=== PATIENT | female | born 1950 | race Asian ===

== ENCOUNTER 2016-08-07 10:50 | Inpatient (IN) | payer MEDICAID, OTHER ==
[~2016-08-07] VITALS: Ht 160 cm; Wt 57.6 kg
--- NOTE | 2016-08-07 11:37 | Diagnostic Imaging Report ---
Indication: Altered metal status, right-sided weakness Technique: Continuous helical CT scanning of the head was performed without intravenous contrast material. Axial and coronal 5 mm sections were generated. Radiation dose was minimized using automated exposure control Dose: Total Dose Length Product - DLP [address] Dose Index - CTDIvol(s) 70.38 mGy. Comparison: None Findings: The ventricular system is normal in size and configuration. The extra-axial CSF spaces are slightly prominent. There is no shift of midline structures. No abnormal extra-axial fluid collections are noted. There is no evidence of intracerebral bleeding. No other abnormal high or low density areas are noted within the brain. Visualized orbits and sinuses are unremarkable. Intact calvarium Impression: Normal CT scan of the head without contrast material. Findings discussed by phone with Dr. Reilly at the time of interpretation The CT scanner at [facility] is accredited by the [employer] and the scans are performed using protocols designed to limit radiation exposure to as low as reasonably achievable to attain images of sufficient resolution adequate for diagnostic evaluation.
[2016-08-07 11:45] VITALS: BP 164/74
[2016-08-07 11:57] LABS: BASOPHILS % (AUTO) 0.7 % (0.0-2.0); EOSINOPHILS % (AUTO) 0.8 % (0.0-3.0); LYMPHOCYTES % (AUTO) 15.2 % (20.0-45.0); MEAN CORPUSCULAR HEMOGLOBIN 28.8 PG (27.0-31.0); MEAN CORPUSCULAR HGB CONC 32.6 G/DL (32.0-36.0); MEAN CORPUSCULAR VOLUME 88 FL (80-99); MEAN PLATELET VOLUME 5.9 FL (6.5-10.1); MONOCYTES % (AUTO) 3.5 % (1.0-10.0); NEUTROPHILS % (AUTO) 79.9 % (45.0-75.0); PLATELET COUNT 386 K/UL (150-450); RED BLOOD COUNT 4.73 M/UL (4.20-5.40); RED CELL DISTRIBUTION WIDTH 12.1 % (11.6-14.8); WHITE BLOOD COUNT 7.8 K/UL (4.8-10.8)
[2016-08-07 12:10] LABS: PROTHROMBIN TIME 9.8 SEC (9.30-11.50)
[2016-08-07 12:12] LABS: ALANINE AMINOTRANSFERASE 6 U/L (3-33); ALBUMIN/GLOBULIN RATIO 1.4 (1.0-2.7); ANION GAP 14 (5-15); ASPARTATE AMINO TRANSFERASE 14 U/L (5-40); CALCIUM 9.4 mg/dL (8.6-10.2); CARBON DIOXIDE 28 mEQ/L (20-30); CHLORIDE 96 mEQ/L (98-107); CHOLESTEROL 198 mg/dL (< 200); CHOLESTEROL/HDL RATIO 3.2 (3.3-4.4); CREATININE 0.8 mg/dL (0.5-0.9); GLOMERULAR FILTRATION RATE > 60 mL/min (>60); HEMOLYSIS 14; LDL CHOLESTEROL (CALC.) 124 mg/dL (60-99); POTASSIUM 4.1 mEQ/L (3.4-4.9); SODIUM 138 mEQ/L (135-145); TOTAL PROTEIN 7.2 g/dL (6.6-8.7); TROPONIN I < 0.30 ng/mL (<=0.30)
[2016-08-07 12:45] VITALS: BP 155/79
[2016-08-07] MEDS ORDERED: METFORMIN HCL500 M1 ORAL (13:02)
[2016-08-07] MEDS ORDERED: BENAZEPRIL HCL10 MG ORAL (13:02)
[2016-08-07] MEDS ORDERED: METOPROLOL TART25 MG ORAL (13:02)
[2016-08-07 13:16] LABS: APPEARANCE,URINE CLEAR; KETONES,URINE NEGATIVE (NEGATIVE); NITRITE,URINE NEGATIVE (NEGATIVE); PH,URINE 8 (4.5-8.0); PROTEIN,URINE NEGATIVE (NEGATIVE); UROBILINOGEN,URINE NORMAL MG/DL (0.0-1.0)
[2016-08-07 13:30] LABS: BACTERIA,URINE FEW /HPF; LEUKOCYTE ESTERASE ,URINE 1+ (NEGATIVE); RBC,URINE 0-2 /HPF (0 - 2); SQUAMOUS EPITHELIAL CELL,UR FEW /LPF (NONE/OCC)
[2016-08-07 14:45] VITALS: BP 152/81
--- NOTE | 2016-08-07 15:46 | Diagnostic Imaging Report ---
Indication: CVA Technique: sagittal T1 fast spin echo, axial T1 and T2 FLAIR PROPELLER, axial T2 FS PROPELLER, T2* GRE, axial diffusion weighted images, post contrast axial and coronal T1 FLAIR PROPELLER images. ADC and exponential ADC maps generated Comparison: None Findings: . A cluster of foci of restricted diffusion is seen within the left pineda radiata and left basal ganglia region. There is a separate focus of restricted diffusion in the left temporoparietal junction. There is no associated susceptibility artifact to suggest acute hemorrhage.. There is minimal abnormal increased T2 signal on the T2 and T3 FLAIR images in the corresponding areas.. No mass effect nor midline shift. There a small focus of contrast enhancement just to the left of midline this above the sella which measures approximately 6 mm diameter, seen on the coronal and axial postcontrast images no other foci of unusual contrast enhancement.. The blood vessels in the left posterior frontal, parietal, and temporal lobes are considerably more prominent than those on the right on postcontrast images. In addition, abnormal high signal is seen within the left convexity vessels of the MCA distribution on the T2 FLAIR images. On the T2 images, there is less visibility of the M1 segment flow void and there is of the contralateral side. There is age-related enlargement of the ventricles and extra-axial CSF spaces. Visualized orbits and sinuses are unremarkable. . Impression: Positive for multifocal acute lacunar infarcts of the left carotid radiata, basal ganglia, and a single separate focus in the left temporoparietal junction. Multiplicity suggests embolic phenomena as etiology. No associated hemorrhage Unusual finding of high T2 FLAIR signal within the left middle cerebral artery distribution branch vessels, increased contrast enhancement of these arteries, and poor visualization of the M1 flow void on the T2-weighted images. Findings are suggestive of significant stenosis of the left proximal middle cerebral artery. Consider CT angiogram or MR angiogram for better characterization Suspect 6 mm meningioma of the top of the clinoid on the left Mild age-related volume loss Findings discussed with phone with Dr. Reilly at the time the exam was performed
--- NOTE | 2016-08-07 16:22 | Emergency Room Report ---
History of Present Illness General Chief Complaint: General Complaint Source: Patient, EMS Present Illness HPI Patient states that around 4 AM she woke up and noticed that she had slurred speech. She states that she also had weakness and numbness in her right arm. She states that the weakness has improved. She still has a tingling/numbness sensation in her right arm. She continues to have slurred speech but states that it is improved. She denies recent illness. She denies headache. She denies recent trauma. She denies neck pain. She denies chest pain or shortness of breath. She has no other complaints. Allergies: Coded Allergies: No Known Allergies (Unverified , 08/07/16) Patient History Past Medical History: see triage record, DM, HTN Social History: Denies: alcohol use, drug use, smoking Reviewed Nursing Documentation: PMH: Agreed, PSxH: Agreed Nursing Documentation-PMH Past Medical History: No History, Except For Hx Hypertension: Yes Hx Diabetes: Yes Review of Systems All Other Systems: negative except mentioned in HPI Physical Exam Vital Signs Date Time Temp Pulse Resp B/P Pulse Ox O2 Delivery O2 Flow Rate FiO2 08/07/16 10:49 98.1 75 20 171/79 100 Room Air Sp02 EP Interpretation: reviewed, normal General Appearance: no apparent distress, alert, GCS 15, non-toxic Head: normocephalic, atraumatic Eyes: bilateral eye PERRL, bilateral eye normal inspection ENT: hearing grossly normal, normal pharynx, no angioedema Neck: full range of motion, supple/symm/no masses Respiratory: chest non-tender, lungs clear, normal breath sounds, speaking full sentences Cardiovascular #1: regular rate, rhythm, no edema, systolic murmur Gastrointestinal: normal bowel sounds, non tender, soft, non-distended, no guarding, no rebound Rectal: deferred Musculoskeletal: back normal, gait/station normal, normal range of motion, non- tender Neurologic: alert, oriented x3, responsive, motor strength/tone normal, other - Slurred speech. Word finding and slow speech. Psychiatric: judgement/insight normal, memory normal, mood/affect normal, no suicidal/homicidal ideation Skin: normal color, no rash, warm/dry, well hydrated Medical Decision Making Diagnostic Impression: Primary Impression: CVA (cerebral vascular accident) ER Course This patient presents with ischemic stroke. She has multifocal findings on MRI. See official report. This is consistent with embolic stroke. She also has evidence of a stenosed left middle cerebral artery. She was given aspirin here in the emergency department. She is admitted to the ICU step down for further evaluation and treatment. He is to have slurred speech during her ED course. This patient is critically ill. This patient required complex medical decision- making, aggressive intervention, extensive laboratory workup and monitoring. Critical care time: 40 minutes. Labs Test 08/07/16 11:40 08/07/16 12:40 White Blood Count 7.8 K/UL (4.8-10.8) Red Blood Count 4.73 M/UL (4.20-5.40) Hemoglobin 13.7 G/DL (12.0-16.0) Hematocrit 41.9 % (37.0-47.0) Mean Corpuscular Volume 88 FL (80-99) Mean Corpuscular Hemoglobin 28.8 PG (27.0-31.0) Mean Corpuscular Hemoglobin Concent 32.6 G/DL (32.0-36.0) Red Cell Distribution Width 12.1 % (11.6-14.8) Platelet Count 386 K/UL (150-450) Mean Platelet Volume 5.9 FL (6.5-10.1) Neutrophils (%) (Auto) 79.9 % (45.0-75.0) Lymphocytes (%) (Auto) 15.2 % (20.0-45.0) Monocytes (%) (Auto) 3.5 % (1.0-10.0) Eosinophils (%) (Auto) 0.8 % (0.0-3.0) Basophils (%) (Auto) 0.7 % (0.0-2.0) Prothrombin Time 9.8 SEC (9.30-11.50) Prothromb Time International Ratio 1.0 (0.9-1.1) Activated Partial Thromboplast Time 27 SEC (23-33) Sodium Level 138 mEQ/L (135-145) Potassium Level 4.1 mEQ/L (3.4-4.9) Chloride Level 96 mEQ/L (98-107) Carbon Dioxide Level 28 mEQ/L (20-30) Anion Gap 14 (5-15) Blood Urea Nitrogen 15 mg/dL (7-23) Creatinine 0.8 mg/dL (0.5-0.9) Estimat Glomerular Filtration Rate > 60 mL/min (>60) Glucose Level 167 mg/dL (74-106) Calcium Level 9.4 mg/dL (8.6-10.2) Total Bilirubin 0.5 mg/dL (0.0-1.2) Aspartate Amino Transf (AST/SGOT) 14 U/L (5-40) Alanine Aminotransferase (ALT/SGPT) 6 U/L (3-33) Alkaline Phosphatase 62 U/L (35-104) Troponin I < 0.30 ng/mL (<=0.30) Total Protein 7.2 g/dL (6.6-8.7) Albumin 4.2 g/dL (3.5-5.2) Globulin 3.0 g/dL Albumin/Globulin Ratio 1.4 (1.0-2.7) Triglycerides Level 59 mg/dL (< 150) Cholesterol Level 198 mg/dL (< 200) LDL Cholesterol 124 mg/dL (60-99) HDL Cholesterol 62 mg/dL (> 60) Cholesterol/HDL Ratio 3.2 (3.3-4.4) Urine Color Pale yellow Urine Appearance Clear Urine pH 8 (4.5-8.0) Urine Specific [place] 1.010 (1.005-1.035) Urine Protein Negative (NEGATIVE) Urine Glucose (UA) Negative (NEGATIVE) Urine Ketones Negative (NEGATIVE) Urine Occult Blood Negative (NEGATIVE) Urine Nitrite Negative (NEGATIVE) Urine Bilirubin Negative (NEGATIVE) Urine Urobilinogen Normal MG/DL (0.0-1.0) Urine Leukocyte Esterase 1+ (NEGATIVE) Urine RBC 0-2 /HPF (0 - 2) Urine WBC 2-4 /HPF (0 - 2) Urine Squamous Epithelial Cells Few /LPF (NONE/OCC) Urine Bacteria Few /HPF (NONE) EKG Diagnostic Results Rate: normal Rhythm: NSR ST Segments: no acute changes Rhythm Strip Diag. Results EP Interpretation: yes Rate: 70's Rhythm: NSR, no PVC's, no ectopy Chest X-Ray Diagnostic Results EP Interpretation: Yes Findings: no consolidation, no effusion, no pneumothorax, no acute cardiopulmonary disease Number of Views: 1 CT/MRI/US Diagnostic Results CT/MRI/US Diagnostic Results : Imaging Test Ordered: CT head, MRI Brain Impression Impression: Normal CT scan of the head without contrast material. MRI Brain Impression: Positive for multifocal acute lacunar infarcts of the left carotid radiata, basal ganglia, and a single separate focus in the left temporoparietal junction. Multiplicity suggests embolic phenomena as etiology. No associated hemorrhage Unusual finding of high T2 FLAIR signal within the left middle cerebral artery distribution branch vessels, increased contrast enhancement of these arteries, and poor visualization of the M1 flow void on the T2-weighted images. Findings are suggestive of significant stenosis of the left proximal middle cerebral artery. Consider CT angiogram or MR angiogram for better characterization Suspect 6 mm meningioma of the top of the clinoid on the left Mild age-related volume loss Findings discussed with phone with Dr. Coy at the time the exam was performed Last Vital Signs Date Time Temp Pulse Resp B/P Pulse Ox O2 Delivery O2 Flow Rate FiO2 08/07/16 14:45 98.1 77 18 152/81 100 Room Air Disposition: ADMITTED INPATIENT Condition: Critical Referrals: NON PHYSICIAN (PCP) JOSETTE COY D.O. Aug 07, 2016 16:22
[2016-08-07 16:46] VITALS: BP 133/64
[2016-08-07 18:48] VITALS: BP 125/65
--- NOTE | 2016-08-07 19:29 | Neurology Progress Note ---
Objective Physical Exam Last Vital Signs Date Time Temp Pulse Resp B/P Pulse Ox O2 Delivery O2 Flow Rate FiO2 08/07/16 18:48 98.1 72 17 125/65 100 Room Air Laboratory Tests Test 08/07/16 11:40 08/07/16 12:40 White Blood Count 7.8 K/UL (4.8-10.8) Red Blood Count 4.73 M/UL (4.20-5.40) Hemoglobin 13.7 G/DL (12.0-16.0) Hematocrit 41.9 % (37.0-47.0) Mean Corpuscular Volume 88 FL (80-99) Mean Corpuscular Hemoglobin 28.8 PG (27.0-31.0) Mean Corpuscular Hemoglobin Concent 32.6 G/DL (32.0-36.0) Red Cell Distribution Width 12.1 % (11.6-14.8) Platelet Count 386 K/UL (150-450) Mean Platelet Volume 5.9 FL (6.5-10.1) L Neutrophils (%) (Auto) 79.9 % (45.0-75.0) H Lymphocytes (%) (Auto) 15.2 % (20.0-45.0) L Monocytes (%) (Auto) 3.5 % (1.0-10.0) Eosinophils (%) (Auto) 0.8 % (0.0-3.0) Basophils (%) (Auto) 0.7 % (0.0-2.0) Prothrombin Time 9.8 SEC (9.30-11.50) Prothromb Time International Ratio 1.0 (0.9-1.1) Activated Partial Thromboplast Time 27 SEC (23-33) Sodium Level 138 mEQ/L (135-145) Potassium Level 4.1 mEQ/L (3.4-4.9) Chloride Level 96 mEQ/L (98-107) L Carbon Dioxide Level 28 mEQ/L (20-30) Anion Gap 14 (5-15) Blood Urea Nitrogen 15 mg/dL (7-23) Creatinine 0.8 mg/dL (0.5-0.9) Estimat Glomerular Filtration Rate > 60 mL/min (>60) Glucose Level 167 mg/dL (74-106) H Calcium Level 9.4 mg/dL (8.6-10.2) Total Bilirubin 0.5 mg/dL (0.0-1.2) Aspartate Amino Transf (AST/SGOT) 14 U/L (5-40) Alanine Aminotransferase (ALT/SGPT) 6 U/L (3-33) Alkaline Phosphatase 62 U/L (35-104) Troponin I < 0.30 ng/mL (<=0.30) Total Protein 7.2 g/dL (6.6-8.7) Albumin 4.2 g/dL (3.5-5.2) Globulin 3.0 g/dL Albumin/Globulin Ratio 1.4 (1.0-2.7) Triglycerides Level 59 mg/dL (< 150) Cholesterol Level 198 mg/dL (< 200) LDL Cholesterol 124 mg/dL (60-99) H HDL Cholesterol 62 mg/dL (> 60) H Cholesterol/HDL Ratio 3.2 (3.3-4.4) L Urine Color Pale yellow Urine Appearance Clear Urine pH 8 (4.5-8.0) Urine Specific [place] 1.010 (1.005-1.035) Urine Protein Negative (NEGATIVE) Urine Glucose (UA) Negative (NEGATIVE) Urine Ketones Negative (NEGATIVE) Urine Occult Blood Negative (NEGATIVE) Urine Nitrite Negative (NEGATIVE) Urine Bilirubin Negative (NEGATIVE) Urine Urobilinogen Normal MG/DL (0.0-1.0) Urine Leukocyte Esterase 1+ (NEGATIVE) H Urine RBC 0-2 /HPF (0 - 2) Urine WBC 2-4 /HPF (0 - 2) Urine Squamous Epithelial Cells Few /LPF (NONE/OCC) Urine Bacteria Few /HPF (NONE) Impression/Recommendations Problems: (1) Acute L MCA thromboembolic stroke, expressive aphasia. (2) HTN (hypertension) (3) Diabetes mellitus (4) Hyperlipidemia (5) meningioma, asymptomatic Status: not improved Recommendations # [id number] LYNNETTE ZARCO Aug 07, 2016 19:29
[2016-08-07 20:00] VITALS: BP 157/88
[2016-08-07] MEDS ORDERED: DuoNeb 0.5-3(2.5)mg/3ml neb HHN PRN (20:45)
[2016-08-07] MEDS ORDERED: LORazepam Inj 2mg/ml 1ml IV PRN (20:45)
[2016-08-07] MEDS ORDERED: Morphine Sulfate 2mg/ml Inj IVP PRN (20:45)
[2016-08-07] MEDS ORDERED: Labetalol 5mg/ml 20ml vial IV PRN (20:45)
[2016-08-07] MEDS ORDERED: Promethazine/Codeine 5ml UD ORAL PRN (20:45)
[2016-08-07] MEDS ORDERED: Mylanta II UD 30ml ORAL PRN (20:45)
[2016-08-07] MEDS ORDERED: Nitroglycerin Subl 0.4mg tab (Bottle Of 25) SL PRN (20:45)
[2016-08-07] MEDS ORDERED: Miralax 17gm pkt ORAL PRN (20:45)
[2016-08-07] MEDS ORDERED: Enalaprilat 2.5mg/2ml Inj IV PRN (20:45)
[2016-08-07] MEDS ORDERED: NovoLOG Insulin Flexpen SUBQ SCH (21:00)
[2016-08-07] MEDS: Aspirin EC 81mg tab ORAL SCH (21:39)
[2016-08-07] MEDS: Heparin 5000 units/ml inj SUBQ SCH (23:11)
[2016-08-07] MEDS: D5 1/2NS 1,000 ML IV SCH (23:12)
[2016-08-08] VITALS (7 sets, daily range): BP systolic 134–158; BP diastolic 63–92
--- NOTE | 2016-08-08 01:08 | Consultation ---
DATE OF CONSULTATION: 08/07/2016 NEUROLOGICAL CONSULTATION: REQUESTING PHYSICIAN: Denzel Hyatt M.D. HISTORY OF PRESENT ILLNESS: The patient is a 66-year-old female, seen in neurological consultation to evaluate acute stroke. According to the patient as well as from medical records note that she woke up this morning around 4 a.m. She noticed to have slurred speech. Subsequently, she noticed weakness and numbness in her left upper extremity. Although the patient felt some improvement, she continued to have tingling and numbness in her right upper extremity. Paramedics were called to the scene at that time, the patient has displayed some improvement. Upon arrival, her vital signs were stable. Blood pressure 170/79. EKG normal sinus rhythm. No PVCs. No atrial fibrillation. Normal sinus rhythm rate of 70 noted. Her initial assessment included CT of the brain, which was negative. MRI of the brain with and without contrast was obtained revealing a multifocal acute lacunar infarcts in the left pineda radiata, basal ganglia, and left temporoparietal junction. Signs suggestive of significant stenosis left possible middle cerebral artery. There was suspicious 6 mm meningioma in the last, mild age-related volume loss. Since admission till present, the patient clinically improved. There was no unilateral numbness. Weakness noted. The patient continued to have some speech abnormality. Her vital signs during observation remained stable with normal pulse oximetry and afebrile. Laboratory studies included normal urinalysis. Coagulation panel was normal. Chemistry panel was unremarkable except elevated blood sugar of 167 and chloride 96. Elevated LDL 124. Normal troponin. Normal liver function. CBC studies unremarkable. PAST MEDICAL HISTORY: The patient has a history of diabetes and hypertension. She is maintained on benazepril 10 mg, metformin 500 mg, and metoprolol 25 mg. ALLERGIES: None reported. 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 She denies alcohol or drug abuse. Nonsmoker. FAMILY HISTORY: Noncontributory. REVIEW OF SYMPTOMS: The patient was indicating difficulty speech and probably some tingling in the right upper extremity. She denies associated symptomatology. No headache. No dizziness. No visual or hearing abnormalities. Denies chest pain or palpitations. Denies respiratory difficulties. No abdominal pain or discomfort. No urine or bowel incontinence. PHYSICAL EXAMINATION: GENERAL: This is a well-developed, well-nourished, pleasant lady, not in acute distress, lying comfortably in bed, smiling. VITAL SIGNS: Her blood pressure is 148/70 and respirations 14. HEENT: Head normocephalic. No evidence of trauma. Eyes, ears, and throat are clear. NECK: Supple. No meningeal signs. MUSCULOSKELETAL: Unremarkable. No deformities. PERIPHERAL PULSES: A 1+ symmetric. MENTAL STATUS: The patient is alert. She has a good comprehension. She is able to follow simple commands. Her speech is non fluent. She has a significant word-finding difficulties somewhat slurred speech. CRANIAL NERVE II: Pupils both responding to light and accommodation. Extraocular movement full range. CRANIAL NERVE V: Normal corneal responses. CRANIAL NERVE VII: Slight droop right nasolabial fold. CRANIAL NERVE VIII: Normal hearing. CRANIAL NERVES IX THROUGH XII: Tongue is in midline. Symmetric palate elevation. MOTOR EXAMINATION: Normal muscle tone. There is no pronation drift. strength 5/5. Deep reflexes brisk 3+ bilaterally. Plantar responses are mute. SENSORY EXAMINATION: Inconsistent response but withdrawing to pin stimulation both arms. Gait not tested. IMPRESSION: 1. Acute thromboembolic stroke left middle cerebral artery distribution presenting with a transient right upper extremity, weakness, numbness, tingling, residual expressive aphasia, and slight dysarthria. 2. Left middle cerebral artery severe stenosis. 3. Hypertension. 4. Diabetes type 2. 5. Hyperlipidemia. DISCUSSION: The patient has evidence of aphasia unable to provide a complete history. She has radiological findings indicative of severe left MCA distribution stenosis and multiple lacunar strokes in the same distribution of left MCA, but no evidence of strokes beyond single vascular system that would be suggestive of cardiac embolism. The patient has multiple stroke risk factors and arthrosclerotic angiopathy as expected. There is radiological evidence of small 6 mm meningioma most likely asymptomatic. RECOMMENDATIONS: 1. Plavix 75 mg daily. 2. Aspirin 325 mg daily. 3. Bedrest. 4. PT/OT and speech therapy assessment. 5. Get a CT angiogram of the neck and intracranial area. 6. Get a 2D echocardiogram with bubble study. 7. Lab work will include RANDAL, sedimentation rate, CRP, B12, folate, and thyroid function. I will follow with you. Thank you for allowing me to see this interesting patient in neurological consultation. Seth Clifton Bowers DR: Ki JOB#: [id number] CC:
[2016-08-08 05:44] LABS: BASOPHILS % (AUTO) 1.2 % (0.0-2.0); EOSINOPHILS % (AUTO) 2.4 % (0.0-3.0); LYMPHOCYTES % (AUTO) 27.3 % (20.0-45.0); MEAN CORPUSCULAR HEMOGLOBIN 29.3 PG (27.0-31.0); MEAN CORPUSCULAR VOLUME 89 FL (80-99); MEAN PLATELET VOLUME 5.8 FL (6.5-10.1); MONOCYTES % (AUTO) 5.6 % (1.0-10.0); NEUTROPHILS % (AUTO) 63.5 % (45.0-75.0); PLATELET COUNT 353 K/UL (150-450); RED CELL DISTRIBUTION WIDTH 12.2 % (11.6-14.8); WHITE BLOOD COUNT 6.9 K/UL (4.8-10.8)
[2016-08-08 06:01] LABS: PROTHROMBIN TIME 10.4 SEC (9.30-11.50)
[2016-08-08] MEDS: NovoLOG Insulin Flexpen SUBQ SCH ×4 (06:21→21:38)
[2016-08-08 06:35] LABS: ALANINE AMINOTRANSFERASE 6 U/L (3-33); ALBUMIN/GLOBULIN RATIO 1.3 (1.0-2.7); ANION GAP 16 (5-15); ASPARTATE AMINO TRANSFERASE 13 U/L (5-40); CALCIUM 9.1 mg/dL (8.6-10.2); CARBON DIOXIDE 25 mEQ/L (20-30); CHLORIDE 98 mEQ/L (98-107); CHOLESTEROL 194 mg/dL (< 200); CHOLESTEROL/HDL RATIO 3.6 (3.3-4.4); CREATININE 0.8 mg/dL (0.5-0.9); GLOMERULAR FILTRATION RATE > 60 mL/min (>60); HEMOLYSIS 5; LDL CHOLESTEROL (CALC.) 122 mg/dL (60-99); POTASSIUM 3.5 mEQ/L (3.4-4.9); SODIUM 139 mEQ/L (135-145); TOTAL PROTEIN 6.6 g/dL (6.6-8.7)
[2016-08-08] MEDS: Aspirin EC 81mg tab ORAL SCH (08:47)
[2016-08-08] MEDS: Heparin 5000 units/ml inj SUBQ SCH ×2 (08:48→21:37)
--- NOTE | 2016-08-08 09:50 | Diagnostic Imaging Report ---
Indication: Chest pain Technique: One view of the chest Comparison: none Findings: There is evidence of left paratracheal mass displacing the trachea to the right.. This may in part be exaggerated by very slight rightward rotation. There is surgical hardware in the lower neck. There is a 6 mm noncalcified left midlung nodule. The lungs and pleural spaces are otherwise clear. The heart size is normal Impression: No acute infiltrates or effusions Noncalcified 6 mm left midlung nodule. Further evaluation with chest CT recommended Suggestion of left paratracheal mass, deviating the trachea to the right. Likewise, further evaluation with chest CT should be considered Findings discussed by phone with Dr. Cali in the emergency room at the time of interpretation
--- NOTE | 2016-08-08 11:43 | Neurology Progress Note ---
Interim History Interim History ROS Limited/Unobtainable: Yes Complaints: none, limited verbal output Events: stable, EKG [id number] sinus rythm Objective Physical Exam Last Vital Signs Date Time Temp Pulse Resp B/P Pulse Ox O2 Delivery O2 Flow Rate FiO2 08/08/16 08:15 70 18 Room Air 08/08/16 08:00 96.3 139/73 98 Laboratory Tests Test 08/07/16 11:40 08/07/16 12:40 08/08/16 04:50 White Blood Count 7.8 K/UL (4.8-10.8) 6.9 K/UL (4.8-10.8) Red Blood Count 4.73 M/UL (4.20-5.40) 4.50 M/UL (4.20-5.40) Hemoglobin 13.7 G/DL (12.0-16.0) 13.2 G/DL (12.0-16.0) Hematocrit 41.9 % (37.0-47.0) 40.0 % (37.0-47.0) Mean Corpuscular Volume 88 FL (80-99) 89 FL (80-99) Mean Corpuscular Hemoglobin 28.8 PG (27.0-31.0) 29.3 PG (27.0-31.0) Mean Corpuscular Hemoglobin Concent 32.6 G/DL (32.0-36.0) 33.0 G/DL (32.0-36.0) Red Cell Distribution Width 12.1 % (11.6-14.8) 12.2 % (11.6-14.8) Platelet Count 386 K/UL (150-450) 353 K/UL (150-450) Mean Platelet Volume 5.9 FL (6.5-10.1) L 5.8 FL (6.5-10.1) L Neutrophils (%) (Auto) 79.9 % (45.0-75.0) H 63.5 % (45.0-75.0) Lymphocytes (%) (Auto) 15.2 % (20.0-45.0) L 27.3 % (20.0-45.0) Monocytes (%) (Auto) 3.5 % (1.0-10.0) 5.6 % (1.0-10.0) Eosinophils (%) (Auto) 0.8 % (0.0-3.0) 2.4 % (0.0-3.0) Basophils (%) (Auto) 0.7 % (0.0-2.0) 1.2 % (0.0-2.0) Prothrombin Time 9.8 SEC (9.30-11.50) 10.4 SEC (9.30-11.50) Prothromb Time International Ratio 1.0 (0.9-1.1) 1.0 (0.9-1.1) Activated Partial Thromboplast Time 27 SEC (23-33) 28 SEC (23-33) Sodium Level 138 mEQ/L (135-145) 139 mEQ/L (135-145) Potassium Level 4.1 mEQ/L (3.4-4.9) 3.5 mEQ/L (3.4-4.9) Chloride Level 96 mEQ/L (98-107) L 98 mEQ/L (98-107) Carbon Dioxide Level 28 mEQ/L (20-30) 25 mEQ/L (20-30) Anion Gap 14 (5-15) 16 (5-15) H Blood Urea Nitrogen 15 mg/dL (7-23) 15 mg/dL (7-23) Creatinine 0.8 mg/dL (0.5-0.9) 0.8 mg/dL (0.5-0.9) Estimat Glomerular Filtration Rate > 60 mL/min (>60) > 60 mL/min (>60) Glucose Level 167 mg/dL (74-106) H 174 mg/dL (74-106) H Calcium Level 9.4 mg/dL (8.6-10.2) 9.1 mg/dL (8.6-10.2) Total Bilirubin 0.5 mg/dL (0.0-1.2) 0.5 mg/dL (0.0-1.2) Aspartate Amino Transf (AST/SGOT) 14 U/L (5-40) 13 U/L (5-40) Alanine Aminotransferase (ALT/SGPT) 6 U/L (3-33) 6 U/L (3-33) Alkaline Phosphatase 62 U/L (35-104) 52 U/L (35-104) Troponin I < 0.30 ng/mL (<=0.30) Total Protein 7.2 g/dL (6.6-8.7) 6.6 g/dL (6.6-8.7) Albumin 4.2 g/dL (3.5-5.2) 3.8 g/dL (3.5-5.2) Globulin 3.0 g/dL 2.8 g/dL Albumin/Globulin Ratio 1.4 (1.0-2.7) 1.3 (1.0-2.7) Triglycerides Level 59 mg/dL (< 150) 90 mg/dL (< 150) Cholesterol Level 198 mg/dL (< 200) 194 mg/dL (< 200) LDL Cholesterol 124 mg/dL (60-99) H 122 mg/dL (60-99) H HDL Cholesterol 62 mg/dL (> 60) H 54 mg/dL (> 60) Cholesterol/HDL Ratio 3.2 (3.3-4.4) L 3.6 (3.3-4.4) Urine Color Pale yellow Urine Appearance Clear Urine pH 8 (4.5-8.0) Urine Specific [place] 1.010 (1.005-1.035) Urine Protein Negative (NEGATIVE) Urine Glucose (UA) Negative (NEGATIVE) Urine Ketones Negative (NEGATIVE) Urine Occult Blood Negative (NEGATIVE) Urine Nitrite Negative (NEGATIVE) Urine Bilirubin Negative (NEGATIVE) Urine Urobilinogen Normal MG/DL (0.0-1.0) Urine Leukocyte Esterase 1+ (NEGATIVE) H Urine RBC 0-2 /HPF (0 - 2) Urine WBC 2-4 /HPF (0 - 2) Urine Squamous Epithelial Cells Few /LPF (NONE/OCC) Urine Bacteria Few /HPF (NONE) Thyroid Stimulating Hormone (TSH) 13.670 uIU/mL (0.300-4.500) General: well developed, well nourished, no acute distress Head: normocophalic Neck: no rigidity EENT: benign Neurologic Exam Mental Status: awake, alert, normal cognition, other - limted communication Speech: other - very nonfluent , worse then yesterday, Language: other - expressive aphasia Cranial Nerve II: fundus normal, visual sanz, no papilledema Cranial Nerves III, IV, : PERRLA, EOMI, pupils Cranial Nerve V: normal facial sensations, temporales function normal, masseters function normal, pterygoids function normal Cranial Nerve VII: other - mild R droop Cranial Nerve VIII: normal hearing, no nystagmus Cranial Nerve IX: normal palate elevation, gag response Cranial Nerve X: no voice hoarseness Cranial Nerve XI: trapezii function normal Cranial Nerve XII: no tongue atrophy/fasciculations, other - dysphagia Motor System: normal muscle tone, no involuntary movement, no muscle wasting, other - R arm and leg -5/5 Sensory: normal pinprick, normal light touch Deep Tendon Reflexes: 1+ ankle (L), 1+ ankle (R), 1+ bicep (L), 1+ bicep (R), 1 + brachioradialis (L), 1+ brachioradialis (R), 1+ knee (L), 1+ knee (R), 1+ tricep (L), 1+ tricep (R) Reflexes: flexor plantar (L), flexor plantar (R) Impression/Recommendations Problems: (1) Acute L MCA thromboembolic stroke, expressive aphasia. (2) HTN (hypertension) (3) Diabetes mellitus (4) Hyperlipidemia (5) meningioma, asymptomatic Status: not improved, deteriorating Recommendations # [id number] today some aphasia progression. keep bed rest keep SBP >130 .<170 keep asa/plavix/ LYNNETTE ZARCO Aug 08, 2016 11:43
--- NOTE | 2016-08-08 12:01 | Consultation ---
History of Present Illness General Date patient seen: Aug 08, 2016 Chief Complaint: General Complaint Referring physician: Dr. White Present Illness HPI 66 year old patient with pmhx of DM, HTN, presented to ER with CC of slurred speech around 4 AM yesterday with weakness and numbness in her right arm with tingling/numbness . She continues to have slurred speech but states that it is improved. She had a MRI and CT showing acute infarct in right MCA . She is admitted for further evaluation. Allergies: Coded Allergies: No Known Allergies (Unverified , 08/07/16) Medication History Scheduled Benazepril Hcl* (Benazepril Hcl*), Unknown Dose ORAL DAILY, (Reported) Metformin Hcl* (Metformin Hcl*), Unknown Dose ORAL DAILY, (Reported) Metoprolol Tartrate* (Metoprolol Tartrate*), Unknown Dose ORAL DAILY, (Reported) Patient History Healthcare decision maker Resuscitation status Full Code Advanced Directive on File No Past Medical/Surgical History Past Medical/Surgical History: (1) HTN (hypertension) (2) Diabetes mellitus Review of Systems All Other Systems: negative except mentioned in HPI Physical Exam General Appearance: WD/WN Lines, tubes and drains: peripheral, central line HEENT: normocephalic, atraumatic Neck: non-tender, normal alignment Respiratory/Chest: chest wall non-tender, lungs clear Cardiovascular/Chest: normal peripheral pulses, regular rhythm Abdomen: normal bowel sounds Genitourinary/Rectal: normal genital exam, normal rectal exam Last 24 Hour Vital Signs Date Time Temp Pulse Resp B/P Pulse Ox O2 Delivery O2 Flow Rate FiO2 08/08/16 08:15 70 18 Room Air 08/08/16 08:00 96.3 68 20 139/73 98 Room Air 08/08/16 08:00 66 08/08/16 04:00 97.2 70 20 134/63 99 Room Air 08/08/16 04:00 62 08/08/16 00:00 71 08/08/16 00:00 97.5 76 18 146/88 97 Room Air 08/07/16 20:48 78 16 Room Air 08/07/16 20:16 77 08/07/16 20:00 97.9 70 18 157/88 97 Room Air 08/07/16 19:34 73 08/07/16 18:48 98.1 72 17 125/65 100 Room Air 08/07/16 18:48 98.1 75 16 133/64 100 Room Air 08/07/16 16:46 98.1 75 16 133/64 100 Room Air 08/07/16 14:45 98.1 77 18 152/81 100 Room Air 08/07/16 12:45 98.1 78 18 155/79 100 Room Air Intake and Output 08/07/16 08/08/16 19:00 07:00 Intake Total 460 ml Balance 460 ml Intake Oral 60 ml IV Total 400 ml # Voids 1 2 Laboratory Tests Test 08/07/16 12:40 08/08/16 04:50 Urine Color Pale yellow Urine Appearance Clear Urine pH 8 (4.5-8.0) Urine Specific [place] 1.010 (1.005-1.035) Urine Protein Negative (NEGATIVE) Urine Glucose (UA) Negative (NEGATIVE) Urine Ketones Negative (NEGATIVE) Urine Occult Blood Negative (NEGATIVE) Urine Nitrite Negative (NEGATIVE) Urine Bilirubin Negative (NEGATIVE) Urine Urobilinogen Normal MG/DL (0.0-1.0) Urine Leukocyte Esterase 1+ (NEGATIVE) H Urine RBC 0-2 /HPF (0 - 2) Urine WBC 2-4 /HPF (0 - 2) Urine Squamous Epithelial Cells Few /LPF (NONE/OCC) Urine Bacteria Few /HPF (NONE) White Blood Count 6.9 K/UL (4.8-10.8) Red Blood Count 4.50 M/UL (4.20-5.40) Hemoglobin 13.2 G/DL (12.0-16.0) Hematocrit 40.0 % (37.0-47.0) Mean Corpuscular Volume 89 FL (80-99) Mean Corpuscular Hemoglobin 29.3 PG (27.0-31.0) Mean Corpuscular Hemoglobin Concent 33.0 G/DL (32.0-36.0) Red Cell Distribution Width 12.2 % (11.6-14.8) Platelet Count 353 K/UL (150-450) Mean Platelet Volume 5.8 FL (6.5-10.1) L Neutrophils (%) (Auto) 63.5 % (45.0-75.0) Lymphocytes (%) (Auto) 27.3 % (20.0-45.0) Monocytes (%) (Auto) 5.6 % (1.0-10.0) Eosinophils (%) (Auto) 2.4 % (0.0-3.0) Basophils (%) (Auto) 1.2 % (0.0-2.0) Prothrombin Time 10.4 SEC (9.30-11.50) Prothromb Time International Ratio 1.0 (0.9-1.1) Activated Partial Thromboplast Time 28 SEC (23-33) Sodium Level 139 mEQ/L (135-145) Potassium Level 3.5 mEQ/L (3.4-4.9) Chloride Level 98 mEQ/L (98-107) Carbon Dioxide Level 25 mEQ/L (20-30) Anion Gap 16 (5-15) H Blood Urea Nitrogen 15 mg/dL (7-23) Creatinine 0.8 mg/dL (0.5-0.9) Estimat Glomerular Filtration Rate > 60 mL/min (>60) Glucose Level 174 mg/dL (74-106) H Calcium Level 9.1 mg/dL (8.6-10.2) Total Bilirubin 0.5 mg/dL (0.0-1.2) Aspartate Amino Transf (AST/SGOT) 13 U/L (5-40) Alanine Aminotransferase (ALT/SGPT) 6 U/L (3-33) Alkaline Phosphatase 52 U/L (35-104) Total Protein 6.6 g/dL (6.6-8.7) Albumin 3.8 g/dL (3.5-5.2) Globulin 2.8 g/dL Albumin/Globulin Ratio 1.3 (1.0-2.7) Triglycerides Level 90 mg/dL (< 150) Cholesterol Level 194 mg/dL (< 200) LDL Cholesterol 122 mg/dL (60-99) H HDL Cholesterol 54 mg/dL (> 60) Cholesterol/HDL Ratio 3.6 (3.3-4.4) Thyroid Stimulating Hormone (TSH) 13.670 uIU/mL (0.300-4.500) Height (Feet): 5 Height (Inches): 3.00 Weight (Pounds): 127 Medications Current Medications Medications (Trade) Dose Ordered Sig/Rafiq Route PRN Reason Start Time Stop Time Status Last Admin Dose Admin Acetaminophen (Tylenol) 650 mg Q4H PRN ORAL fever 08/07/16 20:45 09/06/16 20:44 Al Hydroxide/Mg Hydroxide (Mylanta II) 30 ml Q6H PRN ORAL dyspepsia 08/07/16 20:45 09/06/16 20:44 Albuterol/ Ipratropium (DuoNeb 0.5-3(2.5)mg/3ml) 3 ml Q4H PRN HHN Shortness of Breath 08/07/16 20:45 08/12/16 20:44 Aspirin (Ecotrin) 81 mg DAILY ORAL 08/07/16 20:30 09/06/16 20:29 08/08/16 08:47 Clonidine HCl (Catapres) 0.1 mg Q4H PRN ORAL SBP > 160 08/07/16 20:45 09/06/16 20:44 Clopidogrel Bisulfate 75 mg 75 mg DAILY ORAL 08/08/16 09:00 09/07/16 08:59 08/08/16 08:47 Dextrose (Dextrose 50%) STAT PRN IV Hypoglycemia 08/07/16 20:45 09/06/16 20:44 Dextrose/Sodium Chloride (D5 0.45% NS) 1,000 ml @ 50 mls/hr Q20H IV 08/07/16 22:00 09/06/16 21:59 08/07/16 23:12 Enalaprilat (Vasotec) 2.5 mg Q4H PRN IV sbp more than 200 08/07/16 20:45 09/06/16 20:44 Heparin Sodium (Porcine) (Heparin 5000 units/ml) 5,000 units EVERY 12 HOURS SUBQ 08/07/16 23:00 09/06/16 22:59 08/08/16 08:48 Hydralazine HCl (Apresoline) 20 mg Q4H PRN IV SBP > 160 08/08/16 10:00 09/07/16 09:59 Insulin Aspart (NovoLOG) BEFORE MEALS AND HS SUBQ 08/08/16 06:30 09/07/16 06:29 08/08/16 11:47 Labetalol HCl (Normodyne) 20 mg Q1H PRN IV SBP more than 180 08/07/16 20:45 09/06/16 20:44 Lorazepam (Ativan 2mg/ml 1ml) 0.5 mg Q4H PRN IV For Anxiety 08/07/16 20:45 08/14/16 20:44 Morphine Sulfate (Morphine Sulfate) 1 mg Q4H PRN IVP For Pain 7-10 08/07/16 20:45 08/14/16 20:44 Nitroglycerin (Ntg) 0.4 mg Q5M X 3 DOSES PRN SL Prn Chest Pain 08/07/16 20:45 09/06/16 20:44 Ondansetron HCl (Zofran) 4 mg Q6H PRN IVP Nausea & Vomiting 08/07/16 20:45 09/06/16 20:44 Polyethylene Glycol (Miralax) 17 gm HSPRN PRN ORAL Constipation 08/07/16 20:45 09/06/16 20:44 Promethazine HCl/ Codeine (Phenergan with Codeine) 5 ml Q4H PRN ORAL For Cough 08/07/16 20:45 09/06/16 20:44 Temazepam (Restoril) 15 mg HSPRN PRN ORAL Insomnia 08/07/16 20:45 08/14/16 20:44 Assessment/Plan Problem List: (1) Acute L MCA thromboembolic stroke, expressive aphasia. (2) HTN (hypertension) ICD Codes: I10 - Essential (primary) hypertension SNOMED: 26086162 (3) Diabetes mellitus ICD Codes: E11.9 - Type 2 diabetes mellitus without complications SNOMED: 01456357 Assessment/Plan Neuro evaluation aspirin + Plavix pt/ot swallow evaluation monitor BP echocardiogram doppler of carotid artery. FAISAL KATE Aug 08, 2016 12:01
[2016-08-08] MEDS: D5 1/2NS 1,000 ML IV SCH (17:24)
--- NOTE | 2016-08-08 17:24 | History and Physical ---
History of Present Illness General Date patient seen: Aug 08, 2016 Time patient seen: 17:24 Reason for Hospitalization: slurred speech, RUE weakness/numbness Present Illness HPI 66yo female with pmh of DM2 and HTN who presents with slurred speech and RUE weakness/numbness. Patient states that around 4 AM she woke up and noticed that she had slurred speech. She states that she also had weakness and numbness in her right arm. She states that the weakness has improved. She still has a tingling/numbness sensation in her right arm. She continues to have slurred speech but states that it is improved. She denies recent illness. She denies headache. She denies recent trauma. She denies neck pain. She denies chest pain or shortness of breath. She has no other complaints. In ED, pt had CT brain which was neg. MRI brain showed multifocal acute lacunar infarcts in the left pineda radiata, basal ganglia, and left temporoparietal junction. Embolic etiology suspected. Allergies: Coded Allergies: No Known Allergies (Unverified , 08/07/16) Medication History Scheduled Benazepril Hcl* (Benazepril Hcl*), Unknown Dose ORAL DAILY, (Reported) Metformin Hcl* (Metformin Hcl*), Unknown Dose ORAL DAILY, (Reported) Metoprolol Tartrate* (Metoprolol Tartrate*), Unknown Dose ORAL DAILY, (Reported) Patient History Healthcare decision maker pt oriented Resuscitation status Full Code Advanced Directive on File No Review of Systems ROS Narrative CONSTITUTIONAL: No weight loss, fever, chills, weakness or fatigue. HEENT: Eyes: No visual loss, blurred vision, double vision or yellow sclerae. Ears, Nose, Throat: No hearing loss, sneezing, congestion, runny nose or sore throat. SKIN: No rash or itching. CARDIOVASCULAR: No chest pain, chest pressure or chest discomfort. No palpitations or edema. RESPIRATORY: No shortness of breath, cough or sputum. GASTROINTESTINAL: No anorexia, nausea, vomiting or diarrhea. No abdominal pain or blood. NEUROLOGICAL: No headache, dizziness, syncope, paralysis, ataxia, numbness or tingling in the extremities. No change in bowel or bladder control. +slurred speech, word finding difficulty MUSCULOSKELETAL: No muscle, back pain, joint pain or stiffness. HEMATOLOGIC: No anemia, bleeding or bruising. LYMPHATICS: No enlarged nodes. No history of splenectomy. PSYCHIATRIC: No history of depression or anxiety. ENDOCRINOLOGIC: No reports of sweating, cold or heat intolerance. No polyuria or polydipsia. ALLERGIES: No history of asthma, hives, eczema or rhinitis. Physical Exam Physical Exam Narrative General: alert, cooperative, no distress, appears stated age Head: normocephalic, without obvious abnormality, atraumatic Eyes: conjunctivae/corneas clear. PERRL, EOM's intact Throat: lips, mucosa, and tongue normal. MMM Neck: supple, symmetrical, trachea midline, and no JVD Lungs: clear to auscultation bilaterally Heart: regular rate and rhythm, S1, S2 normal, no murmur, click, rub or gallop Abdomen: soft, non-tender, non-distended, bowel sounds normal; no masses or organomegaly Extremities: extremities normal, atraumatic, no cyanosis or edema Pulses: 2+ and symmetric Skin: skin color, texture, turgor normal; no rashes or lesions Neurologic: +dysarthria, +word-finding difficulty, +R sided facial droop, 5/5 motor strength of b/l UE and LEs, sensations intact Last 24 Hour Vital Signs Date Time Temp Pulse Resp B/P Pulse Ox O2 Delivery O2 Flow Rate FiO2 08/08/16 16:07 98.1 110 18 143/73 97 Room Air 08/08/16 13:00 113 142/92 08/08/16 12:40 171/85 08/08/16 12:00 97.2 99 21 158/75 97 Room Air 08/08/16 12:00 85 08/08/16 08:15 70 18 Room Air 08/08/16 08:00 96.3 68 20 139/73 98 Room Air 08/08/16 08:00 66 08/08/16 04:00 97.2 70 20 134/63 99 Room Air 08/08/16 04:00 62 08/08/16 00:00 71 08/08/16 00:00 97.5 76 18 146/88 97 Room Air 08/07/16 20:48 78 16 Room Air 08/07/16 20:16 77 08/07/16 20:00 97.9 70 18 157/88 97 Room Air 08/07/16 19:34 73 08/07/16 18:48 98.1 72 17 125/65 100 Room Air 08/07/16 18:48 98.1 75 16 133/64 100 Room Air Intake and Output 08/07/16 08/08/16 19:00 07:00 Intake Total 460 ml Balance 460 ml Intake Oral 60 ml IV Total 400 ml # Voids 1 2 Laboratory Tests Test 08/08/16 04:50 White Blood Count 6.9 K/UL (4.8-10.8) Red Blood Count 4.50 M/UL (4.20-5.40) Hemoglobin 13.2 G/DL (12.0-16.0) Hematocrit 40.0 % (37.0-47.0) Mean Corpuscular Volume 89 FL (80-99) Mean Corpuscular Hemoglobin 29.3 PG (27.0-31.0) Mean Corpuscular Hemoglobin Concent 33.0 G/DL (32.0-36.0) Red Cell Distribution Width 12.2 % (11.6-14.8) Platelet Count 353 K/UL (150-450) Mean Platelet Volume 5.8 FL (6.5-10.1) L Neutrophils (%) (Auto) 63.5 % (45.0-75.0) Lymphocytes (%) (Auto) 27.3 % (20.0-45.0) Monocytes (%) (Auto) 5.6 % (1.0-10.0) Eosinophils (%) (Auto) 2.4 % (0.0-3.0) Basophils (%) (Auto) 1.2 % (0.0-2.0) Prothrombin Time 10.4 SEC (9.30-11.50) Prothromb Time International Ratio 1.0 (0.9-1.1) Activated Partial Thromboplast Time 28 SEC (23-33) Sodium Level 139 mEQ/L (135-145) Potassium Level 3.5 mEQ/L (3.4-4.9) Chloride Level 98 mEQ/L (98-107) Carbon Dioxide Level 25 mEQ/L (20-30) Anion Gap 16 (5-15) H Blood Urea Nitrogen 15 mg/dL (7-23) Creatinine 0.8 mg/dL (0.5-0.9) Estimat Glomerular Filtration Rate > 60 mL/min (>60) Glucose Level 174 mg/dL (74-106) H Calcium Level 9.1 mg/dL (8.6-10.2) Total Bilirubin 0.5 mg/dL (0.0-1.2) Aspartate Amino Transf (AST/SGOT) 13 U/L (5-40) Alanine Aminotransferase (ALT/SGPT) 6 U/L (3-33) Alkaline Phosphatase 52 U/L (35-104) Total Protein 6.6 g/dL (6.6-8.7) Albumin 3.8 g/dL (3.5-5.2) Globulin 2.8 g/dL Albumin/Globulin Ratio 1.3 (1.0-2.7) Triglycerides Level 90 mg/dL (< 150) Cholesterol Level 194 mg/dL (< 200) LDL Cholesterol 122 mg/dL (60-99) H HDL Cholesterol 54 mg/dL (> 60) Cholesterol/HDL Ratio 3.6 (3.3-4.4) Thyroid Stimulating Hormone (TSH) 13.670 uIU/mL (0.300-4.500) Height (Feet): 5 Height (Inches): 3.00 Weight (Pounds): 127 Medications Current Medications Medications (Trade) Dose Ordered Sig/Rafiq Route PRN Reason Start Time Stop Time Status Last Admin Dose Admin Acetaminophen (Tylenol) 650 mg Q4H PRN ORAL fever 08/07/16 20:45 09/06/16 20:44 Al Hydroxide/Mg Hydroxide (Mylanta II) 30 ml Q6H PRN ORAL dyspepsia 08/07/16 20:45 09/06/16 20:44 Albuterol/ Ipratropium (DuoNeb 0.5-3(2.5)mg/3ml) 3 ml Q4H PRN HHN Shortness of Breath 08/07/16 20:45 08/12/16 20:44 Aspirin (Ecotrin) 81 mg DAILY ORAL 08/07/16 20:30 09/06/16 20:29 08/08/16 08:47 Clonidine HCl (Catapres) 0.1 mg Q4H PRN ORAL SBP > 160 08/07/16 20:45 09/06/16 20:44 Clopidogrel Bisulfate 75 mg 75 mg DAILY ORAL 08/08/16 09:00 09/07/16 08:59 08/08/16 08:47 Dextrose (Dextrose 50%) STAT PRN IV Hypoglycemia 08/07/16 20:45 09/06/16 20:44 Dextrose/Sodium Chloride (D5 0.45% NS) 1,000 ml @ 50 mls/hr Q20H IV 08/07/16 22:00 09/06/16 21:59 08/07/16 23:12 Enalaprilat (Vasotec) 2.5 mg Q4H PRN IV sbp more than 200 08/07/16 20:45 09/06/16 20:44 Heparin Sodium (Porcine) (Heparin 5000 units/ml) 5,000 units EVERY 12 HOURS SUBQ 08/07/16 23:00 09/06/16 22:59 08/08/16 08:48 Hydralazine HCl (Apresoline) 20 mg Q4H PRN IV SBP > 160 08/08/16 10:00 09/07/16 09:59 08/08/16 12:40 Insulin Aspart (NovoLOG) BEFORE MEALS AND HS SUBQ 08/08/16 06:30 09/07/16 06:29 08/08/16 11:47 Labetalol HCl (Normodyne) 20 mg Q1H PRN IV SBP more than 180 08/07/16 20:45 09/06/16 20:44 Lorazepam (Ativan 2mg/ml 1ml) 0.5 mg Q4H PRN IV For Anxiety 08/07/16 20:45 08/14/16 20:44 Morphine Sulfate (Morphine Sulfate) 1 mg Q4H PRN IVP For Pain 7-10 08/07/16 20:45 08/14/16 20:44 Nitroglycerin (Ntg) 0.4 mg Q5M X 3 DOSES PRN SL Prn Chest Pain 08/07/16 20:45 09/06/16 20:44 Ondansetron HCl (Zofran) 4 mg Q6H PRN IVP Nausea & Vomiting 08/07/16 20:45 09/06/16 20:44 Polyethylene Glycol (Miralax) 17 gm HSPRN PRN ORAL Constipation 08/07/16 20:45 09/06/16 20:44 Promethazine HCl/ Codeine (Phenergan with Codeine) 5 ml Q4H PRN ORAL For Cough 08/07/16 20:45 09/06/16 20:44 Temazepam (Restoril) 15 mg HSPRN PRN ORAL Insomnia 08/07/16 20:45 08/14/16 20:44 Assessment/Plan Problem List: (1) Acute L MCA thromboembolic stroke, expressive aphasia. (2) meningioma, asymptomatic (3) HTN (hypertension) ICD Codes: I10 - Essential (primary) hypertension SNOMED: 32968828 (4) Hyperlipidemia ICD Codes: E78.5 - Hyperlipidemia, unspecified SNOMED: 02923624 (5) Diabetes mellitus ICD Codes: E11.9 - Type 2 diabetes mellitus without complications SNOMED: 74446053 Qualifiers: Status: stable Assessment/Plan Admit to inpatient Monitor on tele Neurology consulted, appreciate rec's Pulm/critical care consulted, appreciate rec's ASA + plavix Neuro checks Allow for permissive HTN for now--hold home benazepril and MTP Start atorvastatin 40mg qHS Check lipid panel, TSH, A1C, B12/folate Hold home MTF PT/OT/ST DVT Prophylaxis: SCD, HSQ Code Status: Full Hospital Classification Declaration: Based on this initial evaluation, and depending on the patient's clinical course, I anticipate that this patient will require hospitalization for 2-3 days for acute CVA and close respiratory/ hemodynamic monitoring. Disposition: Once the patient is stable to leave the hospital, I anticipate the patient will likely be discharged to the following environment: home with HH vs SNF vs ARU I spent 70 minutes on this patient's case, and 39 minutes were dedicated to counseling and/or care coordination. Discussed with patient/family, nursing staff, SW/CM, neurology, pulm/critical care regarding clinical status, treatment course, and disposition planning. Time of note may not reflect time of encounter. Christopher Malloy M.D. Aug 08, 2016 17:24
--- NOTE | 2016-08-08 20:41 | Cardiology Report ---
APPROVED REPORT EXAM: Two-dimensional and M-mode echocardiogram with Doppler and color Doppler. INDICATION CAD M-Mode DIMENSIONS IVSd.9 (0.7-1.1cm)Left Atrium (MM)3.4 (1.6-4.0cm) LVDd4.8 (3.5-5.6cm)Aortic Root2.5 (2.0-3.7cm) PWd1.2 (0.7-1.1cm)Aortic Cusp Exc.1.5 (1.5-2.0cm) LVDs3.3 (2.5-4.0cm) PWs1.2 cm Normal left ventricular chamber size, systolic function and wall motion. Left ventricular ejection fraction estimated to be 60%. [place]line mild left ventricular hypertrophy BY 2-D. Anterior Echo-free space, may be due to pericardial fat or effusion. All other cardiac chamber sizes are within normal limits. Mild aortic valve sclerosis with adequate cusp excursion. Mildly thickened mitral valve leaflets with normal excursion. Mild mitral annulus and aortic root calcification. Pulmonic valve not well visualized. IVC at normal size with physiologic collapse. A color flow and spectral Doppler study was performed and revealed: Trace aortic regurgitation. diastolic dysfunction. Mild mitral regurgitation. Trace tricuspid regurgitation. Tricuspid systolic velocities suggests peak right ventricular systolic pressure of 28 mmHg
[2016-08-09] VITALS: BP 114/74
[2016-08-09 04:00] VITALS: BP 135/90
[2016-08-09 05:05] LABS: BASOPHILS % (AUTO) 0.7 % (0.0-2.0); EOSINOPHILS % (AUTO) 0.9 % (0.0-3.0); LYMPHOCYTES % (AUTO) 23.2 % (20.0-45.0); MEAN CORPUSCULAR HEMOGLOBIN 29.9 PG (27.0-31.0); MEAN CORPUSCULAR HGB CONC 33.8 G/DL (32.0-36.0); MEAN CORPUSCULAR VOLUME 88 FL (80-99); MEAN PLATELET VOLUME 5.8 FL (6.5-10.1); MONOCYTES % (AUTO) 6.8 % (1.0-10.0); NEUTROPHILS % (AUTO) 68.4 % (45.0-75.0); PLATELET COUNT 373 K/UL (150-450); RED BLOOD COUNT 4.49 M/UL (4.20-5.40); RED CELL DISTRIBUTION WIDTH 12.2 % (11.6-14.8); WHITE BLOOD COUNT 9.7 K/UL (4.8-10.8)
[2016-08-09 05:32] LABS: HEMOGLOBIN A1C 6.3 % (< 6.0)
[2016-08-09 05:42] LABS: ANION GAP 17 (5-15); CARBON DIOXIDE 24 mEQ/L (20-30); CHLORIDE 96 mEQ/L (98-107); CREATININE 0.9 mg/dL (0.5-0.9); GLOMERULAR FILTRATION RATE > 60 mL/min (>60); HEMOLYSIS 4; POTASSIUM 3.4 mEQ/L (3.4-4.9); SODIUM 137 mEQ/L (135-145)
[2016-08-09] MEDS: NovoLOG Insulin Flexpen SUBQ SCH ×4 (06:26→22:15)
[2016-08-09 08:00] VITALS: BP 148/88
[2016-08-09] MEDS: Heparin 5000 units/ml inj SUBQ SCH ×2 (08:19→21:00)
[2016-08-09] MEDS: Aspirin EC 81mg tab ORAL SCH (08:21)
[2016-08-09] MEDS ORDERED: D5 1/2NS 1000ml IV ONE (10:24)
[2016-08-09] MEDS: D5 1/2NS 1,000 ML IV SCH (11:54)
[2016-08-09 12:00] VITALS: BP 154/91
--- NOTE | 2016-08-09 12:55 | Neurology Progress Note ---
Interim History Interim History ROS Limited/Unobtainable: Yes Complaints: none, limited verbal output Events: stable, EKG [id number] sinus rythm Objective Physical Exam Last Vital Signs Date Time Temp Pulse Resp B/P Pulse Ox O2 Delivery O2 Flow Rate FiO2 08/09/16 08:05 79 16 Room Air 08/09/16 08:00 97.2 148/88 96 Laboratory Tests Test 08/09/16 04:10 White Blood Count 9.7 K/UL (4.8-10.8) Red Blood Count 4.49 M/UL (4.20-5.40) Hemoglobin 13.4 G/DL (12.0-16.0) Hematocrit 39.7 % (37.0-47.0) Mean Corpuscular Volume 88 FL (80-99) Mean Corpuscular Hemoglobin 29.9 PG (27.0-31.0) Mean Corpuscular Hemoglobin Concent 33.8 G/DL (32.0-36.0) Red Cell Distribution Width 12.2 % (11.6-14.8) Platelet Count 373 K/UL (150-450) Mean Platelet Volume 5.8 FL (6.5-10.1) L Neutrophils (%) (Auto) 68.4 % (45.0-75.0) Lymphocytes (%) (Auto) 23.2 % (20.0-45.0) Monocytes (%) (Auto) 6.8 % (1.0-10.0) Eosinophils (%) (Auto) 0.9 % (0.0-3.0) Basophils (%) (Auto) 0.7 % (0.0-2.0) Sodium Level 137 mEQ/L (135-145) Potassium Level 3.4 mEQ/L (3.4-4.9) Chloride Level 96 mEQ/L (98-107) L Carbon Dioxide Level 24 mEQ/L (20-30) Anion Gap 17 (5-15) H Blood Urea Nitrogen 12 mg/dL (7-23) Creatinine 0.9 mg/dL (0.5-0.9) Estimat Glomerular Filtration Rate > 60 mL/min (>60) Glucose Level 159 mg/dL (74-106) H Hemoglobin A1c 6.3 % (< 6.0) H Calcium Level 9.0 mg/dL (8.6-10.2) Vitamin B12 Level 301 pg/mL (211-946) Folate Pending Free Thyroxine 0.77 ng/dL (0.86-1.85) L General: well developed, well nourished, no acute distress Head: normocophalic Neck: no rigidity EENT: benign Neurologic Exam Mental Status: awake, alert, normal cognition, other - limted communication/ very limited verbal output Speech: other - very nonfluent , worse then yesterday, Language: other - expressive aphasia Cranial Nerve II: fundus normal, visual sanz, no papilledema Cranial Nerves III, IV, : PERRLA, EOMI, pupils Cranial Nerve V: normal facial sensations, temporales function normal, masseters function normal, pterygoids function normal Cranial Nerve VII: other - mild R droop Cranial Nerve VIII: normal hearing, no nystagmus Cranial Nerve IX: normal palate elevation, gag response Cranial Nerve X: no voice hoarseness Cranial Nerve XI: trapezii function normal Cranial Nerve XII: no tongue atrophy/fasciculations, other - dysphagia Motor System: normal muscle tone, no involuntary movement, no muscle wasting, other - R arm and leg spastic 1/5 Sensory: normal pinprick, normal light touch Deep Tendon Reflexes: 1+ ankle (L), 1+ ankle (R), 1+ bicep (L), 1+ bicep (R), 1 + brachioradialis (L), 1+ brachioradialis (R), 1+ knee (L), 1+ knee (R), 1+ tricep (L), 1+ tricep (R) Reflexes: flexor plantar (L), extensor plantar (R) Impression/Recommendations Problems: (1) Acute L MCA thromboembolic stroke, expressive aphasia. (2) HTN (hypertension) (3) Diabetes mellitus (4) Hyperlipidemia (5) meningioma, asymptomatic Status: progressing, deteriorating Recommendations # [id number] today severe progression. keep bed rest keep SBP >130 .<170 keep asa/plavix/ stat CT brain d/w family/staff LYNNETTE ZARCO Aug 09, 2016 12:55
--- NOTE | 2016-08-09 13:23 | Pulmonology Progress Note ---
Assessment/Plan Problems: (1) Acute L MCA thromboembolic stroke, expressive aphasia. (2) HTN (hypertension) (3) Diabetes mellitus Assessment/Plan pt/ot improving dc planning swallow study noted. Subjective ROS Limited/Unobtainable: No Interval Events: doing better Allergies: Coded Allergies: No Known Allergies (Unverified , 08/07/16) Objective Last 24 Hour Vital Signs Date Time Temp Pulse Resp B/P Pulse Ox O2 Delivery O2 Flow Rate FiO2 08/09/16 12:00 85 08/09/16 08:05 79 16 Room Air 08/09/16 08:00 97.2 79 20 148/88 96 Room Air 08/09/16 08:00 87 08/09/16 04:00 97.3 81 20 135/90 98 Room Air 08/09/16 04:00 71 08/09/16 00:00 98.0 80 20 114/74 98 Room Air 08/09/16 00:00 81 08/08/16 20:08 107 16 Room Air 08/08/16 20:00 98 08/08/16 20:00 98.0 105 18 142/74 96 Room Air 08/08/16 16:07 98.1 110 18 143/73 97 Room Air 08/08/16 16:00 102 Intake and Output 08/08/16 08/09/16 19:00 07:00 Intake Total 1020 ml 650 ml Balance 1020 ml 650 ml Intake Oral 420 ml 50 ml IV Total 600 ml 600 ml # Voids 1 1 General Appearance: WD/WN HEENT: normocephalic, atraumatic, PERRL Respiratory/Chest: chest wall non-tender Abdomen: normal bowel sounds, soft, non tender Extremities: no cyanosis, no clubbing Skin: no lesions Laboratory Tests 08/09/16 04:10: White Blood Count 9.7, Red Blood Count 4.49, Hemoglobin 13.4, Hematocrit 39.7, Mean Corpuscular Volume 88, Mean Corpuscular Hemoglobin 29.9, Mean Corpuscular Hemoglobin Concent 33.8, Red Cell Distribution Width 12.2, Platelet Count 373, Mean Platelet Volume 5.8L, Neutrophils (%) (Auto) 68.4, Lymphocytes (%) (Auto) 23.2, Monocytes (%) (Auto) 6.8, Eosinophils (%) (Auto) 0.9, Basophils (%) (Auto ) 0.7, Sodium Level 137, Potassium Level 3.4, Chloride Level 96L, Carbon Dioxide Level 24, Anion Gap 17H, Blood Urea Nitrogen 12, Creatinine 0.9, Estimat Glomerular Filtration Rate > 60, Glucose Level 159H, Hemoglobin A1c 6.3H , Calcium Level 9.0, Vitamin B12 Level 301, Folate [Pending], Free Thyroxine 0.77L Current Medications Medications (Trade) Dose Ordered Sig/Rafiq Route PRN Reason Start Time Stop Time Status Last Admin Dose Admin Acetaminophen (Tylenol) 650 mg Q4H PRN ORAL fever 08/07/16 20:45 09/06/16 20:44 Al Hydroxide/Mg Hydroxide (Mylanta II) 30 ml Q6H PRN ORAL dyspepsia 08/07/16 20:45 09/06/16 20:44 Albuterol/ Ipratropium (DuoNeb 0.5-3(2.5)mg/3ml) 3 ml Q4H PRN HHN Shortness of Breath 08/07/16 20:45 08/12/16 20:44 Aspirin (Ecotrin) 81 mg DAILY ORAL 08/07/16 20:30 09/06/16 20:29 08/09/16 08:21 Atorvastatin Calcium (Lipitor) 40 mg BEDTIME ORAL 08/09/16 21:00 09/08/16 20:59 Clonidine HCl (Catapres) 0.1 mg Q4H PRN ORAL SBP > 160 08/07/16 20:45 09/06/16 20:44 Clopidogrel Bisulfate 75 mg 75 mg DAILY ORAL 08/08/16 09:00 09/07/16 08:59 08/09/16 08:18 Dextrose (Dextrose 50%) STAT PRN IV Hypoglycemia 08/07/16 20:45 09/06/16 20:44 Dextrose/Sodium Chloride (D5 0.45% NS) 1,000 ml @ 50 mls/hr Q20H IV 08/07/16 22:00 09/06/16 21:59 08/09/16 11:54 Enalaprilat (Vasotec) 2.5 mg Q4H PRN IV sbp more than 200 08/07/16 20:45 09/06/16 20:44 Heparin Sodium (Porcine) (Heparin 5000 units/ml) 5,000 units EVERY 12 HOURS SUBQ 08/07/16 23:00 09/06/16 22:59 08/09/16 08:19 Hydralazine HCl (Apresoline) 20 mg Q4H PRN IV SBP > 160 08/08/16 10:00 09/07/16 09:59 08/08/16 12:40 Insulin Aspart (NovoLOG) BEFORE MEALS AND HS SUBQ 08/08/16 06:30 09/07/16 06:29 08/09/16 11:54 Labetalol HCl (Normodyne) 20 mg Q1H PRN IV SBP more than 180 08/07/16 20:45 09/06/16 20:44 Lorazepam (Ativan 2mg/ml 1ml) 0.5 mg Q4H PRN IV For Anxiety 08/07/16 20:45 08/14/16 20:44 Morphine Sulfate (Morphine Sulfate) 1 mg Q4H PRN IVP For Pain 7-10 08/07/16 20:45 08/14/16 20:44 Nitroglycerin (Ntg) 0.4 mg Q5M X 3 DOSES PRN SL Prn Chest Pain 08/07/16 20:45 09/06/16 20:44 Ondansetron HCl (Zofran) 4 mg Q6H PRN IVP Nausea & Vomiting 08/07/16 20:45 09/06/16 20:44 Polyethylene Glycol (Miralax) 17 gm HSPRN PRN ORAL Constipation 08/07/16 20:45 09/06/16 20:44 Promethazine HCl/ Codeine (Phenergan with Codeine) 5 ml Q4H PRN ORAL For Cough 08/07/16 20:45 09/06/16 20:44 Temazepam (Restoril) 15 mg HSPRN PRN ORAL Insomnia 08/07/16 20:45 08/14/16 20:44 FAISAL KATE Aug 09, 2016 13:23
[2016-08-09 15:55] VITALS: BP 158/86
--- NOTE | 2016-08-09 16:31 | Diagnostic Imaging Report ---
Indications: Altered middle status Technique: Spiral acquisitions obtained through the brain. Angled axial and coronal 5 x 5 mm slices were reconstructed. Total dose length product 1362 mGycm. CTDI vol(s) 70 mGy Comparison: 08/07/2016 CT, 08/07/2016 MRI Findings: Interim development of low attenuation in the left radiology and basal ganglia region, consistent with evolution of the acute infarcts described on recent MRI. Area of low attenuation however, is somewhat larger than the area of diffusion abnormality. There is some low-attenuation inferiorly within the left basal ganglia which does not exhibited a diffusion abnormality on the earlier MRI, and could represent an infarct that has happened since the MRI. In the left posterior parietal lobe, there is some subtle high parenchymal cortical attenuation which is not evident on the earlier exam. This is seen on images 17 through 20 of series 3. This does not correspond with an area of infarction described on the prior MRI. This is very subtle, so is an equivocal finding. No other acute hemorrhage nor edema. No mass effect or midline shift. Normal foley-white differentiation elsewhere. Normal for age ventricles and extra-axial CSF spaces. Intact calvarium. Visualized orbits and sinuses are unremarkable. Impression: Since 08/07/2016, interim development of low attenuation in the left pineda radiata and basal ganglia region, consistent with evolution of the acute infarcts described on recent MRI. However, the area of low attenuation is equivocally somewhat larger than the area of diffusion abnormality, particularly inferiorly, there may have been progression of infarcts since the previous exam Subtle high attenuation in the left posterior parietal cortex. While possibly artifactual, this raises concern for cortical petechial hemorrhage. MRI may be useful to confirm if clinically indicated No significant mass effect demonstrated. Critical value findings phoned to Dr. Hyatt and Dr. Aviles at the time of interpretation The CT scanner at [facility] is accredited by the [employer] and the scans are performed using protocols designed to limit radiation exposure to as low as reasonably achievable to attain images of sufficient resolution adequate for diagnostic evaluation.
--- NOTE | 2016-08-09 17:22 | Diagnostic Imaging Report ---
Indication: Post nasogastric tube placement Technique: Supine view of the abdomen Comparison: none Findings: There is a nasogastric tube in place, tip over the gastric fundus in good position. Bowel gas pattern is unremarkable. No unusual masses or calcifications Impression: Satisfactory nasogastric tube placement No acute process
--- NOTE | 2016-08-09 20:01 | General Progress Note ---
Assessment/Plan Problem List: (1) Acute L MCA thromboembolic stroke, expressive aphasia. (2) meningioma, asymptomatic (3) HTN (hypertension) ICD Codes: I10 - Essential (primary) hypertension SNOMED: 68912598 (4) Hyperlipidemia ICD Codes: E78.5 - Hyperlipidemia, unspecified SNOMED: 38404314 (5) Diabetes mellitus ICD Codes: E11.9 - Type 2 diabetes mellitus without complications SNOMED: 69557951 Qualifiers: Status: stable Assessment/Plan Monitor on tele Neurology consulted, appreciate rec's Pulm/critical care consulted, appreciate rec's ASA + plavix Neuro checks Allow for permissive HTN for now--hold home benazepril and MTP Start atorvastatin 40mg qHS Check lipid panel, TSH, A1C, B12/folate Hold home MTF PT/OT/ST DC planning to SNF vs ARU DVT Prophylaxis: SCD, HSQ Code Status: Full Hospital Classification Declaration: Based on this initial evaluation, and depending on the patient's clinical course, I anticipate that this patient will require hospitalization for 1-2 days for acute CVA and close respiratory/ hemodynamic monitoring. Disposition: Once the patient is stable to leave the hospital, I anticipate the patient will likely be discharged to the following environment: SNF vs ARU I spent 40 minutes on this patient's case, and 22 minutes were dedicated to counseling and/or care coordination. Discussed with patient/family, nursing staff, SW/CM, neurology, pulm/critical care regarding clinical status, treatment course, and disposition planning. Subjective Date patient seen: Aug 09, 2016 Time patient seen: 15:00 ROS Limited/Unobtainable: No Constitutional: Reports: no symptoms HEENT: Reports: no symptoms Cardiovascular: Reports: no symptoms Respiratory: Reports: no symptoms Gastrointestinal/Abdominal: Reports: no symptoms Genitourinary: Reports: no symptoms Neurologic/Psychiatric: Reports: weakness Endocrine: Reports: no symptoms Hematologic/Lymphatic: Reports: no symptoms Allergies: Coded Allergies: No Known Allergies (Unverified , 08/07/16) All Systems: reviewed and negative except above Subjective R sided weakness worsened overnight Repeat CT head today showed evolving stroke w/ minor petechial bleed Pt doing well. Still w/ expressive aphasia D/w at bedside. Pt will need SNF vs ARU on d/c. Objective Last 24 Hour Vital Signs Date Time Temp Pulse Resp B/P Pulse Ox O2 Delivery O2 Flow Rate FiO2 3/17/17 16:09 89 08/09/16 15:55 98.2 83 20 158/86 97 Room Air 08/09/16 12:00 85 08/09/16 12:00 97.0 74 20 154/91 96 Room Air 08/09/16 08:05 79 16 Room Air 08/09/16 08:00 97.2 79 20 148/88 96 Room Air 08/09/16 08:00 87 08/09/16 04:00 97.3 81 20 135/90 98 Room Air 08/09/16 04:00 71 08/09/16 00:00 98.0 80 20 114/74 98 Room Air 08/09/16 00:00 81 08/08/16 20:08 107 16 Room Air 08/08/16 20:00 98 08/08/16 20:00 98.0 105 18 142/74 96 Room Air Intake and Output 08/08/16 08/09/16 19:00 07:00 Intake Total 1020 ml 650 ml Balance 1020 ml 650 ml Intake Oral 420 ml 50 ml IV Total 600 ml 600 ml # Voids 1 1 Laboratory Tests 08/09/16 04:10: White Blood Count 9.7, Red Blood Count 4.49, Hemoglobin 13.4, Hematocrit 39.7, Mean Corpuscular Volume 88, Mean Corpuscular Hemoglobin 29.9, Mean Corpuscular Hemoglobin Concent 33.8, Red Cell Distribution Width 12.2, Platelet Count 373, Mean Platelet Volume 5.8L, Neutrophils (%) (Auto) 68.4, Lymphocytes (%) (Auto) 23.2, Monocytes (%) (Auto) 6.8, Eosinophils (%) (Auto) 0.9, Basophils (%) (Auto ) 0.7, Sodium Level 137, Potassium Level 3.4, Chloride Level 96L, Carbon Dioxide Level 24, Anion Gap 17H, Blood Urea Nitrogen 12, Creatinine 0.9, Estimat Glomerular Filtration Rate > 60, Glucose Level 159H, Hemoglobin A1c 6.3H , Calcium Level 9.0, Vitamin B12 Level 301, Folate [Pending], Free Thyroxine 0.77L Height (Feet): 5 Height (Inches): 3.00 Weight (Pounds): 127 Objective General: alert, cooperative, no distress, appears stated age Head: normocephalic, without obvious abnormality, atraumatic Eyes: conjunctivae/corneas clear. PERRL, EOM's intact Throat: lips, mucosa, and tongue normal. MMM Neck: supple, symmetrical, trachea midline, and no JVD Lungs: clear to auscultation bilaterally Heart: regular rate and rhythm, S1, S2 normal, no murmur, click, rub or gallop Abdomen: soft, non-tender, non-distended, bowel sounds normal; no masses or organomegaly Extremities: extremities normal, atraumatic, no cyanosis or edema Pulses: 2+ and symmetric Skin: skin color, texture, turgor normal; no rashes or lesions Neurologic: +dysarthria, +word-finding difficulty, +R sided facial droop, 2/5 motor strength of b/l UE and LEs, sensations intact Christopher Malloy M.D. Aug 09, 2016 20:01
[2016-08-09 20:48] VITALS: BP 144/93
[2016-08-10] VITALS: BP_SYST 152
[2016-08-10 04:00] VITALS: BP 148/81
[2016-08-10] MEDS: NovoLOG Insulin Flexpen SUBQ SCH ×4 (06:20→22:15)
[2016-08-10 08:00] VITALS: BP 161/92
[2016-08-10] MEDS: Aspirin EC 81mg tab ORAL SCH (08:29)
[2016-08-10] MEDS: Heparin 5000 units/ml inj SUBQ SCH ×2 (08:30→21:35)
[2016-08-10] MEDS: D5 1/2NS 1,000 ML IV SCH (08:40)
--- NOTE | 2016-08-10 11:06 | Pulmonology Progress Note ---
Assessment/Plan Assessment/Plan ASSESSMENT Acute L MCA thromboembolic stroke, in progression expressive aphasia. HTN (hypertension) Diabetes mellitus Hyperlipidemia meningioma, asymptomatic hypothyroidism , newly diagnosed dysphagia PLAN OF CARE MAY gentle IVF keep SBP above 130 and below 170 on ASA, Plavix, statin repeated CT brain consistent with evolution of the acute infarcts described on recent MRI. However, the area of low attenuation is equivocally somewhat larger than the area of diffusion abnormality, particularly inferiorly, which likely indicative of progression of infarcts since the previous exam neuro follows PT/OT/ST NGT feeding, strict aspiration precautions, swallow eval noted initially diet as recommended by ST with stroke progression NGT inserted and started on NGT feeding VSS on Friday may need PEG DVT prophylaxis started on Synthroid as per endo ( elevated TSH, low free T4, apparently no prior hx of hypothyroidism ) case discussed and evaluated by supervising physician Subjective Allergies: Coded Allergies: No Known Allergies (Unverified , 08/07/16) Subjective more awake today last CT brain revealed progression of previous stroke on NGT feeding Objective Last 24 Hour Vital Signs Date Time Temp Pulse Resp B/P Pulse Ox O2 Delivery O2 Flow Rate FiO2 08/10/16 08:00 101 08/10/16 07:06 80 16 Room Air 08/10/16 04:00 78 08/10/16 04:00 97.7 90 18 148/81 97 Room Air 08/10/16 00:00 81 08/10/16 00:00 98.0 89 18 152/ 98 Room Air 08/09/16 20:48 97.7 101 18 144/93 97 Room Air 08/09/16 20:00 77 08/09/16 20:00 87 18 Room Air 08/09/16 16:09 89 08/09/16 15:55 98.2 83 20 158/86 97 Room Air 08/09/16 12:00 85 08/09/16 12:00 97.0 74 20 154/91 96 Room Air Intake and Output 08/09/16 08/10/16 19:00 07:00 Intake Total 615 ml 980 ml Output Total 400 ml Balance 615 ml 580 ml IV Total 600 ml 600 ml Tube Feeding 15 ml 280 ml Other 100 ml Output Urine Total 400 ml # Voids 2 Objective General: HEENT normocephalic, without obvious abnormality, atraumatic,PERRL, NGT intact with TF Neck: supple, symmetrical, trachea midline, and no JVD Lungs: clear to auscultation bilaterally Heart: regular rate and rhythm, S1, S2 normal, no murmur, Abdomen: soft, non-tender, non-distended, bowel sounds normal; Extremities: no edema Pulses: 2+ and symmetric Neurologic: +dysarthria, expressive aphasia, +word-finding difficulty, +R sided facial droop, R arm and leg 1/5 , spastic ; sensations intact Current Medications Medications (Trade) Dose Ordered Sig/Rafiq Route PRN Reason Start Time Stop Time Status Last Admin Dose Admin Acetaminophen (Tylenol) 650 mg Q4H PRN ORAL fever 08/07/16 20:45 09/06/16 20:44 Al Hydroxide/Mg Hydroxide (Mylanta II) 30 ml Q6H PRN ORAL dyspepsia 08/07/16 20:45 09/06/16 20:44 Albuterol/ Ipratropium (DuoNeb 0.5-3(2.5)mg/3ml) 3 ml Q4H PRN HHN Shortness of Breath 08/07/16 20:45 08/12/16 20:44 Aspirin (Ecotrin) 81 mg DAILY ORAL 08/07/16 20:30 09/06/16 20:29 08/10/16 08:29 Atorvastatin Calcium (Lipitor) 40 mg BEDTIME ORAL 08/09/16 21:00 09/08/16 20:59 08/09/16 22:15 Clonidine HCl (Catapres) 0.1 mg Q4H PRN ORAL SBP > 160 08/07/16 20:45 09/06/16 20:44 Clopidogrel Bisulfate 75 mg 75 mg DAILY ORAL 08/08/16 09:00 09/07/16 08:59 08/10/16 08:27 Dextrose (Dextrose 50%) STAT PRN IV Hypoglycemia 08/07/16 20:45 09/06/16 20:44 Dextrose/Sodium Chloride (D5 0.45% NS) 1,000 ml @ 50 mls/hr Q20H IV 08/07/16 22:00 09/06/16 21:59 08/10/16 08:40 Enalaprilat (Vasotec) 2.5 mg Q4H PRN IV sbp more than 200 08/07/16 20:45 09/06/16 20:44 Heparin Sodium (Porcine) (Heparin 5000 units/ml) 5,000 units EVERY 12 HOURS SUBQ 08/07/16 23:00 09/06/16 22:59 08/10/16 08:30 Hydralazine HCl (Apresoline) 20 mg Q4H PRN IV SBP > 160 08/08/16 10:00 09/07/16 09:59 08/08/16 12:40 Insulin Aspart (NovoLOG) BEFORE MEALS AND HS SUBQ 08/08/16 06:30 09/07/16 06:29 08/10/16 06:20 Labetalol HCl (Normodyne) 20 mg Q1H PRN IV SBP more than 180 08/07/16 20:45 09/06/16 20:44 Levothyroxine Sodium (Synthroid) 50 mcg DAILY@0630 ORAL 08/10/16 08:30 09/09/16 08:29 08/10/16 08:27 Lorazepam (Ativan 2mg/ml 1ml) 0.5 mg Q4H PRN IV For Anxiety 08/07/16 20:45 08/14/16 20:44 Morphine Sulfate (Morphine Sulfate) 1 mg Q4H PRN IVP For Pain 7-10 08/07/16 20:45 08/14/16 20:44 Nitroglycerin (Ntg) 0.4 mg Q5M X 3 DOSES PRN SL Prn Chest Pain 08/07/16 20:45 09/06/16 20:44 Ondansetron HCl (Zofran) 4 mg Q6H PRN IVP Nausea & Vomiting 08/07/16 20:45 09/06/16 20:44 Polyethylene Glycol (Miralax) 17 gm HSPRN PRN ORAL Constipation 08/07/16 20:45 09/06/16 20:44 Promethazine HCl/ Codeine (Phenergan with Codeine) 5 ml Q4H PRN ORAL For Cough 08/07/16 20:45 09/06/16 20:44 Temazepam (Restoril) 15 mg HSPRN PRN ORAL Insomnia 08/07/16 20:45 08/14/16 20:44 Elsy Ingram NP ([facility]anchtein) Aug 10, 2016 11:06
[2016-08-10 12:00] VITALS: BP 147/89
--- NOTE | 2016-08-10 15:59 | Neurology Progress Note ---
Interim History Interim History ROS Limited/Unobtainable: No Complaints: none, limited verbal output Events: stable, Objective Physical Exam Last Vital Signs Date Time Temp Pulse Resp B/P Pulse Ox O2 Delivery O2 Flow Rate FiO2 08/10/16 12:00 96.8 79 20 147/89 100 Room Air General: well developed, well nourished, no acute distress, other - ng feeding droopy R face Head: normocophalic Neck: no rigidity EENT: benign Neurologic Exam Mental Status: awake, alert, normal cognition, other - limted communication/ very limited verbal output Speech: other - very nonfluent , follows command Language: other - expressive aphasia Cranial Nerve II: fundus normal, visual sanz, no papilledema Cranial Nerves III, IV, : PERRLA, EOMI, pupils Cranial Nerve V: normal facial sensations, temporales function normal, masseters function normal, pterygoids function normal Cranial Nerve VII: other - mild R droop Cranial Nerve VIII: normal hearing, no nystagmus Cranial Nerve IX: normal palate elevation, gag response Cranial Nerve X: no voice hoarseness Cranial Nerve XI: trapezii function normal Cranial Nerve XII: no tongue atrophy/fasciculations, other - dysphagia Motor System: normal muscle tone, no involuntary movement, no muscle wasting, other - flaccid R side Sensory: normal pinprick, normal light touch Deep Tendon Reflexes: 1+ ankle (L), 1+ ankle (R), 1+ bicep (L), 1+ bicep (R), 1 + brachioradialis (L), 1+ brachioradialis (R), 1+ knee (L), 1+ knee (R), 1+ tricep (L), 1+ tricep (R) Reflexes: flexor plantar (L), extensor plantar (R) Impression/Recommendations Problems: (1) acute ischemic thromboembolic stroke L MCA distribution now completed. (2) HTN (hypertension) (3) Diabetes mellitus (4) Hyperlipidemia (5) meningioma, asymptomatic Status: stable Recommendations # [id number] stroke completed keep bed rest keep SBP >130 .<170 keep asa/ stat CT brain done d/w family/staff LYNNETTE ZARCO Aug 10, 2016 15:59
--- NOTE | 2016-08-10 16:02 | Neurology Progress Note ---
Interim History Interim History ROS Limited/Unobtainable: No Complaints: none, limited verbal output Events: stable, Objective Physical Exam Last Vital Signs Date Time Temp Pulse Resp B/P Pulse Ox O2 Delivery O2 Flow Rate FiO2 08/10/16 12:00 96.8 79 20 147/89 100 Room Air General: well developed, well nourished, no acute distress, other - ng feeding droopy R face Head: normocophalic Neck: no rigidity EENT: benign Neurologic Exam Mental Status: awake, alert, normal cognition, other - limted communication/ very limited verbal output Speech: other - very nonfluent , follows command Language: other - expressive aphasia Cranial Nerve II: fundus normal, visual sanz, no papilledema Cranial Nerves III, IV, : PERRLA, EOMI, pupils Cranial Nerve V: normal facial sensations, temporales function normal, masseters function normal, pterygoids function normal Cranial Nerve VII: other - mild R droop Cranial Nerve VIII: normal hearing, no nystagmus Cranial Nerve IX: normal palate elevation, gag response Cranial Nerve X: no voice hoarseness Cranial Nerve XI: trapezii function normal Cranial Nerve XII: no tongue atrophy/fasciculations, other - dysphagia Motor System: normal muscle tone, no involuntary movement, no muscle wasting, other - flaccid R side Sensory: normal pinprick, normal light touch Deep Tendon Reflexes: 1+ ankle (L), 1+ ankle (R), 1+ bicep (L), 1+ bicep (R), 1 + brachioradialis (L), 1+ brachioradialis (R), 1+ knee (L), 1+ knee (R), 1+ tricep (L), 1+ tricep (R) Reflexes: flexor plantar (L), extensor plantar (R) Impression/Recommendations Problems: (1) acute ischemic thromboembolic stroke L MCA distribution now completed. (2) HTN (hypertension) (3) Diabetes mellitus (4) Hyperlipidemia (5) meningioma, asymptomatic Status: stable Recommendations # [id number] stroke complet keep SBP >130 .<170 keep asa/ stat CT brain done d/w family/staff Acute REHAB LYNNETTE ZARCO Aug 10, 2016 16:02
--- NOTE | 2016-08-10 16:28 | Consultation ---
DATE OF CONSULTATION: 08/10/2016 CONSULTING PHYSICIAN: Pascual Sage M.D. REFERRING PHYSICIAN: Denzel Hyatt M.D. REASON FOR CONSULTATION: Hypothyroidism and diabetes. HISTORY OF PRESENT ILLNESS: The patient is a 66-year-old female with past medical history of diabetes, who was brought to the hospital with slurred speech and she was brought to the emergency department. MRI revealed a multifocal acute lacunar infarct in the left pineda radiata and basal ganglia. The patient was put on NG tube, currently is getting NG tube feeding. As a part of the evaluation, she was noted to have a TSH of 13.6 with a low free T4. She denies history of hypothyroidism. PAST MEDICAL HISTORY: Diabetes and history of hypertension. MEDICATIONS AN OUTPATIENT: Benazepril, metformin, and metoprolol. SOCIAL HISTORY: No smoking, alcohol, or drug use. FAMILY HISTORY: Noncontributory. REVIEW OF SYSTEMS: As per HPI. LABORATORY DATA: Thyroid function reviewed in history of present illness. Sodium 137, potassium 3.4, chloride 96, bicarbonate 24, BUN 12, and creatinine 0.9. A1c of 6.3. PHYSICAL EXAMINATION: GENERAL: She is awake. VITAL SIGNS: Blood pressure is 148/81, pulse of 97, respiratory rate of 18, and temperature of 97.7. HEENT: Pale conjunctivae. NG tube is in place. LUNGS: Clear. HEART: Regular. ABDOMEN: Positive bowel sounds. EXTREMITIES: No clubbing, cyanosis, or edema. DIAGNOSES: 1. Cerebrovascular accident. 2. Dysphagia. 3. New hypothyroidism. 4. Diabetes. PLAN: Sliding scale insulin has been ordered. Blood sugar is reasonably well controlled. I will start the patient on levothyroxine 50 mcg daily. TSH is elevated and free T4 is low, which confirmed the diagnosis of primary hypothyroidism. We will follow her during hospital stay. Thank you, Dr. Hyatt, for the courtesy of this consultation. Chu Garner M.D. DR: JEAN JOB#: [id number] CC:
[2016-08-10 16:31] VITALS: BP 174/96
[2016-08-10 20:00] VITALS: BP 165/93
--- NOTE | 2016-08-10 22:54 | General Progress Note ---
Assessment/Plan Assessment/Plan Problem List: (1) Acute L MCA thromboembolic stroke, expressive aphasia. (2) meningioma, asymptomatic (3) HTN (hypertension) ICD Codes: I10 - Essential (primary) hypertension SNOMED: 37688868 (4) Hyperlipidemia ICD Codes: E78.5 - Hyperlipidemia, unspecified SNOMED: 30361340 (5) Diabetes mellitus ICD Codes: E11.9 - Type 2 diabetes mellitus without complications SNOMED: 55621848 Qualifiers: Status: stable Assessment/Plan Monitor on tele Neurology consulted, appreciate rec's Pulm/critical care consulted, appreciate rec's ASA + plavix Neuro checks Allow for permissive HTN for now--hold home benazepril and MTP Start atorvastatin 40mg qHS Appreciate endo recs, ISS, Synthroid Hold home MTF PT/OT/ST DC planning to SNF vs ARU DVT Prophylaxis: SCD, HSQ Code Status: Full Hospital Classification Declaration: Based on this initial evaluation, and depending on the patient's clinical course, I anticipate that this patient will require hospitalization for 1-2 days for acute CVA and close respiratory/ hemodynamic monitoring. Disposition: Once the patient is stable to leave the hospital, I anticipate the patient will likely be discharged to the following environment: SNF vs ARU I spent 40 minutes on this patient's case, and 22 minutes were dedicated to counseling and/or care coordination. Discussed with patient/family, nursing staff, SW/CM, neurology, pulm/critical care regarding clinical status, treatment course, and disposition planning. Subjective Date patient seen: Aug 10, 2016 ROS Limited/Unobtainable: Yes Allergies: Coded Allergies: No Known Allergies (Unverified , 08/07/16) All Systems: reviewed and negative except above - persitent neuro deficits Subjective no acute events afebrile and hds Objective Last 24 Hour Vital Signs Date Time Temp Pulse Resp B/P Pulse Ox O2 Delivery O2 Flow Rate FiO2 08/10/16 21:55 86 16 Room Air 08/10/16 16:31 96.8 97 20 174/96 100 Room Air 08/10/16 16:00 92 08/10/16 12:00 96.8 79 20 147/89 100 Room Air 08/10/16 12:00 77 08/10/16 08:00 97.2 84 20 161/92 97 Room Air 08/10/16 08:00 101 08/10/16 07:06 80 16 Room Air 08/10/16 04:00 78 08/10/16 04:00 97.7 90 18 148/81 97 Room Air 08/10/16 00:00 81 08/10/16 00:00 98.0 89 18 152/ 98 Room Air Intake and Output 08/09/16 08/10/16 19:00 07:00 Intake Total 615 ml 980 ml Output Total 400 ml Balance 615 ml 580 ml IV Total 600 ml 600 ml Tube Feeding 15 ml 280 ml Other 100 ml Output Urine Total 400 ml # Voids 2 Height (Feet): 5 Height (Inches): 3.00 Weight (Pounds): 127 Objective General: alert, cooperative, no distress, appears stated age Head: normocephalic, without obvious abnormality, atraumatic Eyes: conjunctivae/corneas clear. PERRL, EOM's intact Throat: lips, mucosa, and tongue normal. MMM Neck: supple, symmetrical, trachea midline, and no JVD Lungs: clear to auscultation bilaterally Heart: regular rate and rhythm, S1, S2 normal, no murmur, click, rub or gallop Abdomen: soft, non-tender, non-distended, bowel sounds normal; no masses or organomegaly Extremities: extremities normal, atraumatic, no cyanosis or edema Pulses: 2+ and symmetric Skin: skin color, texture, turgor normal; no rashes or lesions Neurologic: +dysarthria, +word-finding difficulty, +R sided facial droop, 2/5 motor strength of b/l UE and LEs, sensations intact Jonathon Brown MD Aug 10, 2016 22:54
[2016-08-11] VITALS: BP 126/70
[2016-08-11 04:00] VITALS: BP 135/88
[2016-08-11] MEDS: D5 1/2NS 1,000 ML IV SCH (05:01)
[2016-08-11] MEDS: NovoLOG Insulin Flexpen SUBQ SCH ×4 (06:03→21:32)
[2016-08-11 08:00] VITALS: BP 151/80
[2016-08-11] MEDS: Heparin 5000 units/ml inj SUBQ SCH ×2 (08:54→21:31)
--- NOTE | 2016-08-11 09:59 | Pulmonology Progress Note ---
Assessment/Plan Assessment/Plan ASSESSMENT Acute L MCA thromboembolic stroke, in progression , now complete expressive aphasia. HTN (hypertension) Diabetes mellitus Hyperlipidemia meningioma, asymptomatic hypothyroidism , newly diagnosed dysphagia PLAN OF CARE MAY gentle IVF keep SBP above 130 and below 170 on ASA, Plavix, statin repeated CT brain consistent with evolution of the acute infarcts described on recent MRI. However, the area of low attenuation is equivocally somewhat larger than the area of diffusion abnormality, particularly inferiorly, which likely indicative of progression of infarcts since the previous exam neuro follows, now stroke complete PT/OT/ST NGT feeding, strict aspiration precautions, swallow eval noted initially diet as recommended by ST with stroke progression NGT inserted and started on NGT feeding VSS on Friday may need PEG DVT prophylaxis started on Synthroid as per endo ( elevated TSH, low free T4, apparently no prior hx of hypothyroidism ) consider transfer to [facility] per PMD case discussed and evaluated by supervising physician Subjective Allergies: Coded Allergies: No Known Allergies (Unverified , 08/07/16) Subjective awake today last CT brain revealed progression of previous stroke on NGT feeding Objective Last 24 Hour Vital Signs Date Time Temp Pulse Resp B/P Pulse Ox O2 Delivery O2 Flow Rate FiO2 08/11/16 07:37 84 16 Room Air 08/11/16 04:00 98.4 77 18 135/88 97 Room Air 08/11/16 03:36 75 08/11/16 00:00 97.5 69 17 126/70 97 Room Air 08/10/16 23:49 88 08/10/16 21:55 86 16 Room Air 08/10/16 20:00 97.9 75 20 165/93 100 Room Air 08/10/16 16:31 96.8 97 20 174/96 100 Room Air 08/10/16 16:00 92 08/10/16 12:00 96.8 79 20 147/89 100 Room Air 08/10/16 12:00 77 Intake and Output 08/10/16 08/11/16 19:00 07:00 Intake Total 1330 ml 1300 ml Balance 1330 ml 1300 ml Free Water 200 ml 150 ml IV Total 550 ml 600 ml Tube Feeding 580 ml 550 ml # Voids 2 Objective General: awake, alert, responsive HEENT normocephalic, without obvious abnormality, atraumatic,PERRL, NGT intact with TF Neck: supple, symmetrical, trachea midline, and no JVD Lungs: clear to auscultation bilaterally Heart: regular rate and rhythm, S1, S2 normal, no murmur, Abdomen: soft, non-tender, non-distended, bowel sounds normal; Extremities: no edema Pulses: 2+ and symmetric Neurologic: +dysarthria, expressive aphasia, +word-finding difficulty, +R sided facial droop, R arm and leg 1/5 , spastic ; sensations intact Current Medications Medications (Trade) Dose Ordered Sig/Rafiq Route PRN Reason Start Time Stop Time Status Last Admin Dose Admin Acetaminophen (Tylenol) 650 mg Q4H PRN ORAL fever 08/07/16 20:45 09/06/16 20:44 Al Hydroxide/Mg Hydroxide (Mylanta II) 30 ml Q6H PRN ORAL dyspepsia 08/07/16 20:45 09/06/16 20:44 Albuterol/ Ipratropium (DuoNeb 0.5-3(2.5)mg/3ml) 3 ml Q4H PRN HHN Shortness of Breath 08/07/16 20:45 08/12/16 20:44 Atorvastatin Calcium (Lipitor) 40 mg BEDTIME ORAL 08/09/16 21:00 09/08/16 20:59 08/10/16 21:34 Clonidine HCl (Catapres) 0.1 mg Q4H PRN ORAL SBP > 160 08/07/16 20:45 09/06/16 20:44 Clopidogrel Bisulfate 75 mg 75 mg DAILY ORAL 08/08/16 09:00 09/07/16 08:59 08/11/16 08:53 Dextrose (Dextrose 50%) STAT PRN IV Hypoglycemia 08/07/16 20:45 09/06/16 20:44 Dextrose/Sodium Chloride (D5 0.45% NS) 1,000 ml @ 50 mls/hr Q20H IV 08/07/16 22:00 09/06/16 21:59 08/11/16 05:01 Enalaprilat (Vasotec) 2.5 mg Q4H PRN IV sbp more than 200 08/07/16 20:45 09/06/16 20:44 Heparin Sodium (Porcine) (Heparin 5000 units/ml) 5,000 units EVERY 12 HOURS SUBQ 08/07/16 23:00 09/06/16 22:59 08/11/16 08:54 Hydralazine HCl (Apresoline) 20 mg Q4H PRN IV SBP > 160 08/08/16 10:00 09/07/16 09:59 08/08/16 12:40 Insulin Aspart (NovoLOG) BEFORE MEALS AND HS SUBQ 08/08/16 06:30 09/07/16 06:29 08/11/16 06:03 Labetalol HCl (Normodyne) 20 mg Q1H PRN IV SBP more than 180 08/07/16 20:45 09/06/16 20:44 Levothyroxine Sodium (Synthroid) 50 mcg DAILY@0630 ORAL 08/10/16 08:30 09/09/16 08:29 08/11/16 06:02 Lorazepam (Ativan 2mg/ml 1ml) 0.5 mg Q4H PRN IV For Anxiety 08/07/16 20:45 08/14/16 20:44 Morphine Sulfate (Morphine Sulfate) 1 mg Q4H PRN IVP For Pain 7-10 08/07/16 20:45 08/14/16 20:44 Nitroglycerin (Ntg) 0.4 mg Q5M X 3 DOSES PRN SL Prn Chest Pain 08/07/16 20:45 09/06/16 20:44 Ondansetron HCl (Zofran) 4 mg Q6H PRN IVP Nausea & Vomiting 08/07/16 20:45 09/06/16 20:44 Polyethylene Glycol (Miralax) 17 gm HSPRN PRN ORAL Constipation 08/07/16 20:45 09/06/16 20:44 Promethazine HCl/ Codeine (Phenergan with Codeine) 5 ml Q4H PRN ORAL For Cough 08/07/16 20:45 09/06/16 20:44 Temazepam (Restoril) 15 mg HSPRN PRN ORAL Insomnia 08/07/16 20:45 08/14/16 20:44 Elsy Ingram NP (Vanchtein) Aug 11, 2016 09:59
[2016-08-11 12:00] VITALS: BP 153/87
[2016-08-11 16:00] VITALS: BP 166/99
[2016-08-11 20:00] VITALS: BP 161/99
[2016-08-12] VITALS: BP 142/71
[2016-08-12] MEDS: D5 1/2NS 1,000 ML IV SCH ×2 (01:37→18:27)
[2016-08-12 04:00] VITALS: BP 121/67
[2016-08-12] MEDS: NovoLOG Insulin Flexpen SUBQ SCH ×4 (05:57→21:38)
[2016-08-12 08:00] VITALS: BP 154/82
[2016-08-12] MEDS: Heparin 5000 units/ml inj SUBQ SCH ×2 (08:25→21:39)
[2016-08-12 12:00] VITALS: BP 156/82
--- NOTE | 2016-08-12 14:42 | General Progress Note ---
Assessment/Plan Problem List: (1) Acute L MCA thromboembolic stroke, expressive aphasia. (2) meningioma, asymptomatic (3) HTN (hypertension) ICD Codes: I10 - Essential (primary) hypertension SNOMED: 23692439 (4) Hyperlipidemia ICD Codes: E78.5 - Hyperlipidemia, unspecified SNOMED: 55975772 (5) Diabetes mellitus ICD Codes: E11.9 - Type 2 diabetes mellitus without complications SNOMED: 40683313 Qualifiers: (6) Hypothyroid ICD Codes: E03.9 - Hypothyroidism, unspecified SNOMED: 40842039 Status: stable Assessment/Plan Monitor on tele Neurology consulted, appreciate rec's Pulm/critical care consulted, appreciate rec's ASA + plavix Neuro checks Cont atorvastatin 40mg qHS Appreciate endo rec's Started synthroid 50mcg daily per endo Repeat TSH in 6 weeks Hold home MTF ISS PT/OT/ST NGT w/ tube feeds for now F/u video swallow study DC planning to SNF vs ARU DVT Prophylaxis: SCD, HSQ Code Status: Full Hospital Classification Declaration: Based on this initial evaluation, and depending on the patient's clinical course, I anticipate that this patient will require hospitalization for 1-2 days for acute CVA and close respiratory/ hemodynamic monitoring. Disposition: Once the patient is stable to leave the hospital, I anticipate the patient will likely be discharged to the following environment: SNF vs ARU I spent 40 minutes on this patient's case, and 22 minutes were dedicated to counseling and/or care coordination. Discussed with patient/family, nursing staff, SW/CM, neurology, pulm/critical care regarding clinical status, treatment course, and disposition planning. Subjective Date patient seen: Aug 12, 2016 Time patient seen: 14:42 ROS Limited/Unobtainable: No Constitutional: Reports: no symptoms HEENT: Reports: no symptoms Cardiovascular: Reports: no symptoms Respiratory: Reports: no symptoms Gastrointestinal/Abdominal: Reports: no symptoms Genitourinary: Reports: no symptoms Neurologic/Psychiatric: Reports: no symptoms Endocrine: Reports: no symptoms Hematologic/Lymphatic: Reports: no symptoms Allergies: Coded Allergies: No Known Allergies (Unverified , 08/07/16) All Systems: reviewed and negative except above Subjective R sided weakness stable Cont on tube feeds Getting video swallow eval today Pt w/ expressive aphasia D/w sister at bedside. Pt will need SNF vs ARU on d/c. Objective Last 24 Hour Vital Signs Date Time Temp Pulse Resp B/P Pulse Ox O2 Delivery O2 Flow Rate FiO2 08/12/16 12:00 106 08/12/16 08:02 106 19 Nasal Cannula 3.0 08/12/16 08:00 102 08/12/16 08:00 98.1 111 18 154/82 98 Room Air 08/12/16 07:21 106 15 Room Air 08/12/16 04:00 107 08/12/16 04:00 99.1 114 18 121/67 96 Room Air 08/12/16 00:00 98.2 121 18 142/71 98 Room Air 08/12/16 00:00 119 08/11/16 21:36 161/99 08/11/16 20:00 97 08/11/16 20:00 97.0 104 16 161/99 98 Room Air 08/11/16 19:02 102 14 Room Air 08/11/16 16:00 97.5 101 19 166/99 98 Room Air 08/11/16 16:00 90 Intake and Output 08/11/16 08/12/16 19:00 07:00 Intake Total 985 ml 715 ml Balance 985 ml 715 ml IV Total 600 ml 550 ml Tube Feeding 385 ml 165 ml # Voids 2 2 Height (Feet): 5 Height (Inches): 3.00 Weight (Pounds): 127 Objective General: alert, cooperative, no distress, appears stated age Head: normocephalic, without obvious abnormality, atraumatic Eyes: conjunctivae/corneas clear. PERRL, EOM's intact Throat: lips, mucosa, and tongue normal. MMM Neck: supple, symmetrical, trachea midline, and no JVD Lungs: clear to auscultation bilaterally Heart: regular rate and rhythm, S1, S2 normal, no murmur, click, rub or gallop Abdomen: soft, non-tender, non-distended, bowel sounds normal; no masses or organomegaly Extremities: extremities normal, atraumatic, no cyanosis or edema Pulses: 2+ and symmetric Skin: skin color, texture, turgor normal; no rashes or lesions Neurologic: +dysarthria, +word-finding difficulty, +R sided facial droop, 2/5 motor strength of b/l UE and LEs, sensations intact Wijegunaratne,Kanishka M.D. Aug 12, 2016 14:42
[2016-08-12 16:00] VITALS: BP 151/80
[2016-08-12] MEDS ORDERED: Nitroglycerin Subl 0.4mg tab (Bottle Of 25) SL PRN (17:00)
[2016-08-12] MEDS ORDERED: Labetalol 5mg/ml 20ml vial IV PRN (17:45)
[2016-08-12] MEDS ORDERED: D5 1/2NS 1000ml IV ONE ×2 (18:35→18:50)
[2016-08-12] MEDS ORDERED: Sterile Water Irrig 1000ml IRRIG ONE (18:50)
[2016-08-12 20:00] VITALS: BP 136/85
[2016-08-12] MEDS ORDERED: Promethazine/Codeine 5ml UD ORAL PRN (20:45)
[2016-08-12] MEDS ORDERED: Enalaprilat 2.5mg/2ml Inj IV PRN (20:45)
[2016-08-12] MEDS ORDERED: LORazepam Inj 2mg/ml 1ml IV PRN (20:45)
[2016-08-12] MEDS ORDERED: Mylanta II UD 30ml ORAL PRN (20:45)
[2016-08-12] MEDS ORDERED: Morphine Sulfate 2mg/ml Inj IVP PRN (20:45)
[2016-08-12] MEDS ORDERED: DuoNeb 0.5-3(2.5)mg/3ml neb HHN PRN (20:45)
[2016-08-12] MEDS ORDERED: Miralax 17gm pkt ORAL PRN (20:45)
--- NOTE | 2016-08-12 23:29 | Pulmonology Progress Note ---
Assessment/Plan Problems: (1) Acute L MCA thromboembolic stroke, expressive aphasia. (2) HTN (hypertension) (3) Diabetes mellitus Assessment/Plan pt/ot improving dc planning swallow study noted. Subjective ROS Limited/Unobtainable: Yes Constitutional: Reports: anorexia, fatigue Neurologic: Reports: confusion, weakness Allergies: Coded Allergies: No Known Allergies (Unverified , 08/07/16) Objective Last 24 Hour Vital Signs Date Time Temp Pulse Resp B/P Pulse Ox O2 Delivery O2 Flow Rate FiO2 08/12/16 16:00 98.2 99 18 151/80 96 Room Air 08/12/16 16:00 103 08/12/16 12:00 97.7 89 20 156/82 100 Room Air 08/12/16 12:00 106 08/12/16 08:02 106 19 Nasal Cannula 3.0 08/12/16 08:00 102 08/12/16 08:00 98.1 111 18 154/82 98 Room Air 08/12/16 07:21 106 15 Room Air 08/12/16 04:00 107 08/12/16 04:00 99.1 114 18 121/67 96 Room Air 08/12/16 00:00 98.2 121 18 142/71 98 Room Air 08/12/16 00:00 119 Intake and Output 08/11/16 08/12/16 19:00 07:00 Intake Total 985 ml 715 ml Balance 985 ml 715 ml IV Total 600 ml 550 ml Tube Feeding 385 ml 165 ml # Voids 2 2 General Appearance: no acute distress HEENT: normocephalic, atraumatic, PERRL Respiratory/Chest: chest wall non-tender, decreased breath sounds, accessory muscle use Breasts: no masses Cardiovascular: normal peripheral pulses, normal rate, regular rhythm, no JVD Abdomen: normal bowel sounds, soft, non tender, no organomegaly Genitourinary: normal external genitalia Extremities: no cyanosis Neurologic/Psychiatric: responsive, abnormal CN, motor weakness, disoriented, depressed affect Current Medications Medications (Trade) Dose Ordered Sig/Rafiq Route PRN Reason Start Time Stop Time Status Last Admin Dose Admin Acetaminophen (Tylenol) 650 mg Q4H PRN ORAL fever 08/12/16 20:45 09/11/16 20:44 Al Hydroxide/Mg Hydroxide (Mylanta II) 30 ml Q6H PRN ORAL dyspepsia 08/12/16 20:45 09/11/16 20:44 Albuterol/ Ipratropium (DuoNeb 0.5-3(2.5)mg/3ml) 3 ml Q4H PRN HHN Shortness of Breath 08/12/16 20:45 08/17/16 20:44 Atorvastatin Calcium (Lipitor) 40 mg BEDTIME ORAL 08/12/16 21:00 09/11/16 20:59 08/12/16 21:32 Clonidine HCl (Catapres) 0.1 mg Q4H PRN ORAL SBP > 160 08/12/16 20:45 09/11/16 20:44 Clopidogrel Bisulfate (Plavix) 75 mg DAILY ORAL 08/13/16 09:00 09/12/16 08:59 Dextrose (Dextrose 50%) STAT PRN IV Hypoglycemia 08/12/16 20:45 09/11/16 20:44 Dextrose/Sodium Chloride (D5 0.45% NS) 1,000 ml @ 50 mls/hr Q20H IV 08/12/16 17:00 09/11/16 16:59 08/12/16 18:27 Enalaprilat (Vasotec) 2.5 mg Q4H PRN IV sbp more than 200 08/12/16 20:45 09/11/16 20:44 Heparin Sodium (Porcine) (Heparin 5000 units/ml) 5,000 units EVERY 12 HOURS SUBQ 08/12/16 21:00 09/11/16 20:59 08/12/16 21:39 Insulin Aspart (NovoLOG) BEFORE MEALS AND HS SUBQ 08/12/16 21:00 09/11/16 20:59 08/12/16 21:38 Levothyroxine Sodium (Synthroid) 50 mcg DAILY@0630 ORAL 08/13/16 06:30 09/12/16 06:29 Lorazepam (Ativan 2mg/ml 1ml) 0.5 mg Q4H PRN IV For Anxiety 08/12/16 20:45 08/19/16 20:44 Morphine Sulfate (Morphine Sulfate) 1 mg Q4H PRN IVP For Pain 7-10 08/12/16 20:45 08/19/16 20:44 Nitroglycerin (Ntg) 0.4 mg Q5M X 3 DOSES PRN SL Prn Chest Pain 08/12/16 17:00 09/11/16 16:59 Ondansetron HCl (Zofran) 4 mg Q6H PRN IVP Nausea & Vomiting 08/12/16 20:45 09/11/16 20:44 Polyethylene Glycol (Miralax) 17 gm HSPRN PRN ORAL Constipation 08/12/16 20:45 09/11/16 20:44 Promethazine HCl/ Codeine (Phenergan with Codeine) 5 ml Q4H PRN ORAL For Cough 08/12/16 20:45 09/11/16 20:44 Temazepam (Restoril) 15 mg HSPRN PRN ORAL Insomnia 08/12/16 20:45 08/19/16 20:44 FAISAL KATE Aug 12, 2016 23:29
[2016-08-13] VITALS: BP 140/81
[2016-08-13 03:51] VITALS: BP 138/88
[2016-08-13] MEDS: NovoLOG Insulin Flexpen SUBQ SCH ×4 (05:57→20:56)
--- NOTE | 2016-08-13 07:21 | General Progress Note ---
Assessment/Plan Problem List: (1) Hypothyroid ICD Codes: E03.9 - Hypothyroidism, unspecified SNOMED: 41174079 (2) HTN (hypertension) ICD Codes: I10 - Essential (primary) hypertension SNOMED: 07141746 (3) Diabetes mellitus ICD Codes: E11.9 - Type 2 diabetes mellitus without complications SNOMED: 64020496 Qualifiers: (4) Hyperlipidemia ICD Codes: E78.5 - Hyperlipidemia, unspecified SNOMED: 29553464 (5) Acute L MCA thromboembolic stroke, expressive aphasia. Assessment/Plan continue Levothyroxine 50 mcg daily repeat TSH in 6 weeks as OP continue Novolog sliding scale ac / hs Subjective Allergies: Coded Allergies: No Known Allergies (Unverified , 08/07/16) All Systems: reviewed and negative except above Subjective denies complaints Objective Last 24 Hour Vital Signs Date Time Temp Pulse Resp B/P Pulse Ox O2 Delivery O2 Flow Rate FiO2 08/13/16 03:51 98.1 96 18 138/88 95 Room Air 08/13/16 00:00 98.6 98 18 140/81 96 Room Air 08/12/16 20:00 98.8 22 136/85 96 Room Air 08/12/16 19:22 101 19 Nasal Cannula 3.0 08/12/16 16:00 98.2 99 18 151/80 96 Room Air 08/12/16 16:00 103 08/12/16 12:00 97.7 89 20 156/82 100 Room Air 08/12/16 12:00 106 08/12/16 08:02 106 19 Nasal Cannula 3.0 08/12/16 08:00 102 08/12/16 08:00 98.1 111 18 154/82 98 Room Air 08/12/16 07:21 106 15 Room Air Intake and Output 08/12/16 08/13/16 18:59 06:59 Intake Total 580 ml 860 ml Output Total 1 ml Balance 580 ml 859 ml Intake Oral 260 ml IV Total 250 ml 600 ml Tube Feeding 330 ml Output Urine Total 1 ml # Voids 1 1 # Bowel Movements 1 Height (Feet): 5 Height (Inches): 3.00 Weight (Pounds): 127 General Appearance: no apparent distress Neck: normal alignment Cardiovascular: normal rate Respiratory/Chest: lungs clear Abdomen: normal bowel sounds Pelvis: normal external exam Edema: no edema noted Arm (L), no edema noted Arm (R), no edema noted Leg (L), no edema noted Leg (R), no edema noted Pedal (L), no edema noted Pedal (R), no edema noted Generalized Objective Current Medications Medications (Trade) Dose Ordered Sig/Rafiq Route PRN Reason Start Time Stop Time Status Last Admin Dose Admin Acetaminophen (Tylenol) 650 mg Q4H PRN ORAL fever 08/12/16 20:45 09/11/16 20:44 Al Hydroxide/Mg Hydroxide (Mylanta II) 30 ml Q6H PRN ORAL dyspepsia 08/12/16 20:45 09/11/16 20:44 Albuterol/ Ipratropium (DuoNeb 0.5-3(2.5)mg/3ml) 3 ml Q4H PRN HHN Shortness of Breath 08/12/16 20:45 08/17/16 20:44 Atorvastatin Calcium (Lipitor) 40 mg BEDTIME ORAL 08/12/16 21:00 09/11/16 20:59 08/12/16 21:32 Clonidine HCl (Catapres) 0.1 mg Q4H PRN ORAL SBP > 160 08/12/16 20:45 09/11/16 20:44 Clopidogrel Bisulfate (Plavix) 75 mg DAILY ORAL 08/13/16 09:00 09/12/16 08:59 Dextrose (Dextrose 50%) STAT PRN IV Hypoglycemia 08/12/16 20:45 09/11/16 20:44 Dextrose/Sodium Chloride (D5 0.45% NS) 1,000 ml @ 50 mls/hr Q20H IV 08/12/16 17:00 09/11/16 16:59 08/12/16 18:27 Enalaprilat (Vasotec) 2.5 mg Q4H PRN IV sbp more than 200 08/12/16 20:45 09/11/16 20:44 Heparin Sodium (Porcine) (Heparin 5000 units/ml) 5,000 units EVERY 12 HOURS SUBQ 08/12/16 21:00 09/11/16 20:59 08/12/16 21:39 Insulin Aspart (NovoLOG) BEFORE MEALS AND HS SUBQ 08/12/16 21:00 09/11/16 20:59 08/13/16 05:57 Levothyroxine Sodium (Synthroid) 50 mcg DAILY@0630 ORAL 08/13/16 06:30 09/12/16 06:29 08/13/16 05:49 Lorazepam (Ativan 2mg/ml 1ml) 0.5 mg Q4H PRN IV For Anxiety 08/12/16 20:45 08/19/16 20:44 Morphine Sulfate (Morphine Sulfate) 1 mg Q4H PRN IVP For Pain 7-10 08/12/16 20:45 08/19/16 20:44 Nitroglycerin (Ntg) 0.4 mg Q5M X 3 DOSES PRN SL Prn Chest Pain 08/12/16 17:00 09/11/16 16:59 Ondansetron HCl (Zofran) 4 mg Q6H PRN IVP Nausea & Vomiting 08/12/16 20:45 09/11/16 20:44 Polyethylene Glycol (Miralax) 17 gm HSPRN PRN ORAL Constipation 08/12/16 20:45 09/11/16 20:44 Promethazine HCl/ Codeine (Phenergan with Codeine) 5 ml Q4H PRN ORAL For Cough 08/12/16 20:45 09/11/16 20:44 Temazepam (Restoril) 15 mg HSPRN PRN ORAL Insomnia 08/12/16 20:45 08/19/16 20:44 Item Value Date Time Bedside Blood Glucose 179 mg/dl H 08/13/16 0617 Bedside Blood Glucose 204 mg/dl H 08/12/16 2138 Bedside Blood Glucose 161 mg/dl H 08/12/16 1635 Bedside Blood Glucose 190 mg/dl H 08/12/16 1144 Bedside Blood Glucose 188 mg/dl H 08/12/16 0608 SANDRA DUMONT 21, 2017 07:21
[2016-08-13 08:00] VITALS: BP 135/77
[2016-08-13] MEDS: Heparin 5000 units/ml inj SUBQ SCH ×2 (09:24→21:04)
--- NOTE | 2016-08-13 11:50 | Cardiology Report ---
APPROVED REPORT EKG Measurement Heart [id number] Normal sinus rhythm Normal ECG
[2016-08-13 12:31] VITALS: BP 138/58
[2016-08-13] MEDS: D5 1/2NS 1,000 ML IV SCH (14:35)
[2016-08-13 16:00] VITALS: BP 151/86
[2016-08-13] MEDS ORDERED: 1/2 NS 1000ml IV ONE (16:22)
--- NOTE | 2016-08-13 16:56 | General Progress Note ---
Assessment/Plan Problem List: (1) Acute L MCA thromboembolic stroke, expressive aphasia. (2) meningioma, asymptomatic (3) HTN (hypertension) ICD Codes: I10 - Essential (primary) hypertension SNOMED: 24448747 (4) Hyperlipidemia ICD Codes: E78.5 - Hyperlipidemia, unspecified SNOMED: 15071634 (5) Diabetes mellitus ICD Codes: E11.9 - Type 2 diabetes mellitus without complications SNOMED: 62475631 Qualifiers: (6) Hypothyroid ICD Codes: E03.9 - Hypothyroidism, unspecified SNOMED: 91792833 Status: stable Assessment/Plan Neurology consulted, appreciate rec's Pulm/critical care consulted, appreciate rec's ASA + plavix Neuro checks Cont atorvastatin 40mg qHS Appreciate endo rec's Cont synthroid 50mcg daily Repeat TSH in 6 weeks Hold home MTF ISS PT/OT/ST Puree diet per PHARMACIST DC planning to SNF vs ARU DVT Prophylaxis: SCD, HSQ Code Status: Full Hospital Classification Declaration: Based on this initial evaluation, and depending on the patient's clinical course, I anticipate that this patient will require hospitalization for 1-2 days for acute CVA and close respiratory/ hemodynamic monitoring. Disposition: Once the patient is stable to leave the hospital, I anticipate the patient will likely be discharged to the following environment: SNF vs ARU I spent 40 minutes on this patient's case, and 22 minutes were dedicated to counseling and/or care coordination. Discussed with patient/family, nursing staff, SW/CM, neurology, pulm/critical care regarding clinical status, treatment course, and disposition planning. Subjective Date patient seen: Aug 13, 2016 Time patient seen: 16:54 ROS Limited/Unobtainable: No HEENT: Reports: no symptoms Cardiovascular: Reports: no symptoms Respiratory: Reports: no symptoms Gastrointestinal/Abdominal: Reports: no symptoms Genitourinary: Reports: no symptoms Neurologic/Psychiatric: Reports: no symptoms Endocrine: Reports: no symptoms Hematologic/Lymphatic: Reports: no symptoms Allergies: Coded Allergies: No Known Allergies (Unverified , 08/07/16) All Systems: reviewed and negative except above Subjective R sided weakness stable Now tolerating puree diet Pt w/ expressive aphasia D/w sister at bedside. Pt will need SNF vs ARU on d/c. Objective Last 24 Hour Vital Signs Date Time Temp Pulse Resp B/P Pulse Ox O2 Delivery O2 Flow Rate FiO2 08/13/16 16:00 97.7 79 20 151/86 99 Room Air 08/13/16 12:31 97.2 80 18 138/58 98 08/13/16 08:00 97.5 84 20 135/77 99 Room Air 08/13/16 07:50 86 16 Room Air 21.0 08/13/16 03:51 98.1 96 18 138/88 95 Room Air 08/13/16 00:00 98.6 98 18 140/81 96 Room Air 08/12/16 20:00 98.8 22 136/85 96 Room Air 08/12/16 19:22 101 19 Nasal Cannula 3.0 Intake and Output 08/12/16 08/13/16 18:59 06:59 Intake Total 580 ml 860 ml Output Total 1 ml Balance 580 ml 859 ml Intake Oral 260 ml IV Total 250 ml 600 ml Tube Feeding 330 ml Output Urine Total 1 ml # Voids 1 1 # Bowel Movements 1 Height (Feet): 5 Height (Inches): 3.00 Weight (Pounds): 127 Objective General: alert, cooperative, no distress, appears stated age Head: normocephalic, without obvious abnormality, atraumatic Eyes: conjunctivae/corneas clear. PERRL, EOM's intact Throat: lips, mucosa, and tongue normal. MMM Neck: supple, symmetrical, trachea midline, and no JVD Lungs: clear to auscultation bilaterally Heart: regular rate and rhythm, S1, S2 normal, no murmur, click, rub or gallop Abdomen: soft, non-tender, non-distended, bowel sounds normal; no masses or organomegaly Extremities: extremities normal, atraumatic, no cyanosis or edema Pulses: 2+ and symmetric Skin: skin color, texture, turgor normal; no rashes or lesions Neurologic: +dysarthria, +word-finding difficulty, +R sided facial droop, 2/5 motor strength of b/l UE and LEs, sensations intact Christopher Malloy M.D. Aug 13, 2016 16:56
[2016-08-13 20:00] VITALS: BP 159/86
--- NOTE | 2016-08-13 23:31 | Diagnostic Imaging Report ---
APPROVED REPORT CPT Code: 05204 Present Symptoms Comments: Pain BILATERAL: Imaging reveals a patent deep venous system bilaterally. There is no evidence of thrombus within the femoral, popliteal or tibial segments. The greater saphenous veins are also within normal limits. Doppler indicates normal spontaneous flow within these segments.
--- NOTE | 2016-08-13 23:32 | Diagnostic Imaging Report ---
APPROVED REPORT CPT Code: 60672 Vascular Symptoms CVA/TIA: Doppler Spectral Velocity Analysis RightLeft RIGHT SIDE: CCA - Imaging reveals no significant plaque in the common carotid artery. ICA arteries. The Doppler signal indicates the degree of stenosis is mild (30%) in the internal carotid, and (40%) external carotid arteries. VERTEBRAL - The vertebral artery is patent, without evidence of stenosis or steal. LEFT SIDE: CCA - Imaging reveals no significant plaque in the common carotid artery. ICA arteries. The Doppler signal indicates the degree of stenosis is minimal (20%) in the internal carotid, and moderate (70%) in the external carotid arteries. VERTEBRAL - The vertebral artery is patent, without evidence of stenosis or steal.
[2016-08-14] VITALS: BP 153/83
[2016-08-14 04:00] VITALS: BP 148/78
[2016-08-14] MEDS: NovoLOG Insulin Flexpen SUBQ SCH ×4 (06:06→21:36)
--- NOTE | 2016-08-14 07:42 | General Progress Note ---
Assessment/Plan Problem List: (1) Hypothyroid ICD Codes: E03.9 - Hypothyroidism, unspecified SNOMED: 21922665 (2) HTN (hypertension) ICD Codes: I10 - Essential (primary) hypertension SNOMED: 21949327 (3) Diabetes mellitus ICD Codes: E11.9 - Type 2 diabetes mellitus without complications SNOMED: 86176412 Qualifiers: (4) Hyperlipidemia ICD Codes: E78.5 - Hyperlipidemia, unspecified SNOMED: 86621235 (5) Acute L MCA thromboembolic stroke, expressive aphasia. Assessment/Plan continue Levothyroxine 50 mcg daily repeat TSH in 6 weeks as OP add Metformin 500 mg bid continue Novolog sliding scale ac / hs Subjective Allergies: Coded Allergies: No Known Allergies (Unverified , 08/07/16) All Systems: reviewed and negative except above Subjective events noted Objective Last 24 Hour Vital Signs Date Time Temp Pulse Resp B/P Pulse Ox O2 Delivery O2 Flow Rate FiO2 08/14/16 04:00 97.8 76 18 148/78 96 Room Air 08/14/16 00:00 97.6 75 18 153/83 96 Room Air 08/13/16 20:55 159/86 08/13/16 20:39 76 18 Room Air 21.0 08/13/16 20:00 97.7 77 20 159/86 96 Room Air 08/13/16 16:00 97.7 79 20 151/86 99 Room Air 08/13/16 12:31 97.2 80 18 138/58 98 08/13/16 08:00 97.5 84 20 135/77 99 Room Air 08/13/16 07:50 86 16 Room Air 21.0 Intake and Output 08/13/16 08/14/16 19:00 07:00 Intake Total 935 ml 1065 ml Output Total 400 ml Balance 535 ml 1065 ml Intake Oral 360 ml 515 ml IV Total 575 ml 550 ml Output Urine Total 400 ml # Voids 2 3 Height (Feet): 5 Height (Inches): 3.00 Weight (Pounds): 127 General Appearance: no apparent distress Neck: normal alignment Cardiovascular: regular rhythm Respiratory/Chest: normal breath sounds Abdomen: non tender Pelvis: normal external exam Objective Current Medications Medications (Trade) Dose Ordered Sig/Rafiq Route PRN Reason Start Time Stop Time Status Last Admin Dose Admin Acetaminophen (Tylenol) 650 mg Q4H PRN ORAL fever 08/12/16 20:45 09/11/16 20:44 Al Hydroxide/Mg Hydroxide (Mylanta II) 30 ml Q6H PRN ORAL dyspepsia 08/12/16 20:45 09/11/16 20:44 Albuterol/ Ipratropium (DuoNeb 0.5-3(2.5)mg/3ml) 3 ml Q4H PRN HHN Shortness of Breath 08/12/16 20:45 08/17/16 20:44 Atorvastatin Calcium (Lipitor) 40 mg BEDTIME ORAL 08/12/16 21:00 09/11/16 20:59 08/13/16 20:55 Clonidine HCl (Catapres) 0.1 mg Q4H PRN ORAL SBP > 160 08/12/16 20:45 09/11/16 20:44 08/13/16 20:55 Clopidogrel Bisulfate (Plavix) 75 mg DAILY ORAL 08/13/16 09:00 09/12/16 08:59 08/13/16 09:24 Dextrose (Dextrose 50%) STAT PRN IV Hypoglycemia 08/12/16 20:45 09/11/16 20:44 Dextrose/Sodium Chloride (D5 0.45% NS) 1,000 ml @ 50 mls/hr Q20H IV 08/12/16 17:00 09/11/16 16:59 08/13/16 14:35 Enalaprilat (Vasotec) 2.5 mg Q4H PRN IV sbp more than 200 08/12/16 20:45 09/11/16 20:44 Heparin Sodium (Porcine) (Heparin 5000 units/ml) 5,000 units EVERY 12 HOURS SUBQ 08/12/16 21:00 09/11/16 20:59 08/13/16 21:04 Insulin Aspart (NovoLOG) BEFORE MEALS AND HS SUBQ 08/12/16 21:00 09/11/16 20:59 08/14/16 06:06 Levothyroxine Sodium (Synthroid) 50 mcg DAILY@0630 ORAL 08/13/16 06:30 09/12/16 06:29 08/14/16 06:02 Lorazepam (Ativan 2mg/ml 1ml) 0.5 mg Q4H PRN IV For Anxiety 08/12/16 20:45 08/19/16 20:44 Morphine Sulfate (Morphine Sulfate) 1 mg Q4H PRN IVP For Pain 7-10 08/12/16 20:45 08/19/16 20:44 Nitroglycerin (Ntg) 0.4 mg Q5M X 3 DOSES PRN SL Prn Chest Pain 08/12/16 17:00 09/11/16 16:59 Ondansetron HCl (Zofran) 4 mg Q6H PRN IVP Nausea & Vomiting 08/12/16 20:45 09/11/16 20:44 Polyethylene Glycol (Miralax) 17 gm HSPRN PRN ORAL Constipation 08/12/16 20:45 09/11/16 20:44 Promethazine HCl/ Codeine (Phenergan with Codeine) 5 ml Q4H PRN ORAL For Cough 08/12/16 20:45 09/11/16 20:44 Temazepam (Restoril) 15 mg HSPRN PRN ORAL Insomnia 08/12/16 20:45 08/19/16 20:44 Item Value Date Time Bedside Blood Glucose 176 mg/dl H 08/14/16 0638 Bedside Blood Glucose 146 mg/dl H 08/13/16 205 Bedside Blood Glucose 225 mg/dl H 08/13/16 163 Bedside Blood Glucose 204 mg/dl H 08/13/16 1210 Bedside Blood Glucose 179 mg/dl H 08/13/16 0617 SANDRA DUMONT 22, 2017 07:42
[2016-08-14 08:44] VITALS: BP 102/72
[2016-08-14] MEDS: metFORMIN 500mg tab ORAL SCH ×2 (09:36→17:17)
[2016-08-14] MEDS: Heparin 5000 units/ml inj SUBQ SCH ×2 (09:37→21:35)
[2016-08-14] MEDS: D5 1/2NS 1,000 ML IV SCH ×2 (09:40→12:58)
--- NOTE | 2016-08-14 11:46 | Neurology Progress Note ---
Interim History Interim History ROS Limited/Unobtainable: No Complaints: none, limited verbal output Events: stable, Objective Physical Exam Last Vital Signs Date Time Temp Pulse Resp B/P Pulse Ox O2 Delivery O2 Flow Rate FiO2 08/14/16 09:52 80 16 Room Air 21.0 08/14/16 08:44 97.6 102/72 97 General: well developed, well nourished, no acute distress, other - sitting in chair Head: normocophalic, atraumatic Neck: no rigidity EENT: benign Neurologic Exam Mental Status: awake, alert, normal cognition, other - limted communication/ very limited verbal output-limited to syllables only Speech: other - mute, follows command Language: other - expressive aphasia Cranial Nerve II: fundus normal, visual sanz, no papilledema Cranial Nerves III, IV, : PERRLA, EOMI, pupils Cranial Nerve V: normal facial sensations, temporales function normal, masseters function normal, pterygoids function normal Cranial Nerve VII: other - mild R droop Cranial Nerve VIII: normal hearing, no nystagmus Cranial Nerve IX: normal palate elevation, gag response Cranial Nerve X: no voice hoarseness Cranial Nerve XI: trapezii function normal Cranial Nerve XII: no tongue atrophy/fasciculations, other - dysphagia Motor System: normal muscle tone, no involuntary movement, no muscle wasting, other - , except 1/5 R hamstring Sensory: normal pinprick, normal light touch Deep Tendon Reflexes: 1+ ankle (L), 1+ ankle (R), 1+ bicep (L), 1+ bicep (R), 1 + brachioradialis (L), 1+ brachioradialis (R), 1+ knee (L), 1+ knee (R), 1+ tricep (L), 1+ tricep (R) Reflexes: flexor plantar (L), extensor plantar (R) Stance: other Gait: other Impression/Recommendations Problems: (1) acute ischemic thromboembolic stroke L MCA distribution now completed. (2) HTN (hypertension) (3) Diabetes mellitus (4) Hyperlipidemia (5) meningioma, asymptomatic (6) Hypothyroidism Status: stable Recommendations # [id number] stroke complet keep SBP >110<150 keep asa/statins d/w family/staff Acute REHAB PT/OT?SPEECH therapy LYNNETTE ZARCO Aug 14, 2016 11:46
[2016-08-14 12:39] VITALS: BP 121/70
[2016-08-14 14:34] LABS: EOSINOPHILS % (AUTO) 5.8 % (0.0-3.0); LYMPHOCYTES % (AUTO) 24.6 % (20.0-45.0); MEAN CORPUSCULAR HEMOGLOBIN 29.4 PG (27.0-31.0); MEAN CORPUSCULAR HGB CONC 32.6 G/DL (32.0-36.0); MEAN CORPUSCULAR VOLUME 90 FL (80-99); MEAN PLATELET VOLUME 6.3 FL (6.5-10.1); MONOCYTES % (AUTO) 5.5 % (1.0-10.0); NEUTROPHILS % (AUTO) 63.1 % (45.0-75.0); PLATELET COUNT 359 K/UL (150-450); RED BLOOD COUNT 4.61 M/UL (4.20-5.40); RED CELL DISTRIBUTION WIDTH 12.5 % (11.6-14.8); WHITE BLOOD COUNT 8.4 K/UL (4.8-10.8)
[2016-08-14 14:49] LABS: ANION GAP 14 (5-15); CALCIUM 9.7 mg/dL (8.6-10.2); CARBON DIOXIDE 29 mEQ/L (20-30); CHLORIDE 97 mEQ/L (98-107); CREATININE 0.8 mg/dL (0.5-0.9); GLOMERULAR FILTRATION RATE > 60 mL/min (>60); HEMOLYSIS 13; POTASSIUM 4.1 mEQ/L (3.4-4.9); SODIUM 140 mEQ/L (135-145)
[2016-08-14] MEDS ORDERED: ASPIRIN81 MG ORAL (15:15)
[2016-08-14] MEDS ORDERED: SYNTHROID50 MCG ORAL (15:15)
[2016-08-14] MEDS ORDERED: ATORVASTATIN CA40 MG ORAL (15:15)
[2016-08-14] MEDS ORDERED: GLUCOPHAGE500 MG ORAL (15:15)
[2016-08-14] MEDS ORDERED: CLONIDINE0.1 MG ORAL (15:15)
--- NOTE | 2016-08-14 15:16 | Discharge Instructions ---
Discharge Instructions Discharge Instructions Follow up with: F/u with primary care doctor Call MD/Return to Hospital if: worsening weakness/numbness, fevers, chest pain , SOB Diet: other Additional Diet Information: Puree diet Resume Normal Activity?: Yes Activity: resume normal activities For Congestive Heart Failure Reminder Report to your physician any weight gain of 5 pounds or more in one week. Christopher Malloy M.D. Aug 14, 2016 15:16
--- NOTE | 2016-08-14 15:47 | General Progress Note ---
Assessment/Plan Problem List: (1) Acute L MCA thromboembolic stroke, expressive aphasia. (2) meningioma, asymptomatic (3) HTN (hypertension) ICD Codes: I10 - Essential (primary) hypertension SNOMED: 61163399 (4) Hyperlipidemia ICD Codes: E78.5 - Hyperlipidemia, unspecified SNOMED: 93967446 (5) Diabetes mellitus ICD Codes: E11.9 - Type 2 diabetes mellitus without complications SNOMED: 21432388 Qualifiers: (6) Hypothyroid ICD Codes: E03.9 - Hypothyroidism, unspecified SNOMED: 34549328 Status: stable Assessment/Plan Neurology consulted, appreciate rec's Pulm/critical care consulted, appreciate rec's ASA + plavix Neuro checks Cont atorvastatin 40mg qHS Appreciate endo rec's Cont synthroid 50mcg daily Repeat TSH in 6 weeks Resume MTF 500mg BID ISS PT/OT/ST Puree diet per [employer] DC planning to SNF vs ARU DVT Prophylaxis: SCD, HSQ Code Status: Full Hospital Classification Declaration: Based on this initial evaluation, and depending on the patient's clinical course, I anticipate that this patient will require hospitalization for 1-2 days for acute CVA and close respiratory/ hemodynamic monitoring. Disposition: Once the patient is stable to leave the hospital, I anticipate the patient will likely be discharged to the following environment: SNF vs ARU I spent 40 minutes on this patient's case, and 22 minutes were dedicated to counseling and/or care coordination. Discussed with patient/family, nursing staff, SW/CM, neurology, pulm/critical care regarding clinical status, treatment course, and disposition planning. Subjective Date patient seen: Aug 14, 2016 Time patient seen: 15:46 ROS Limited/Unobtainable: No Constitutional: Reports: no symptoms HEENT: Reports: no symptoms Cardiovascular: Reports: no symptoms Respiratory: Reports: no symptoms Gastrointestinal/Abdominal: Reports: no symptoms Genitourinary: Reports: no symptoms Neurologic/Psychiatric: Reports: no symptoms Endocrine: Reports: no symptoms Hematologic/Lymphatic: Reports: no symptoms Allergies: Coded Allergies: No Known Allergies (Unverified , 08/07/16) All Systems: reviewed and negative except above Subjective Awaiting rehab placement R sided weakness stable Now tolerating puree diet Pt w/ expressive aphasia, improving D/w sister at bedside. Pt will need SNF vs ARU on d/c. Objective Last 24 Hour Vital Signs Date Time Temp Pulse Resp B/P Pulse Ox O2 Delivery O2 Flow Rate FiO2 08/14/16 12:39 96.8 72 16 121/70 99 Nasal Cannula 2.0 08/14/16 09:52 80 16 Room Air 21.0 08/14/16 08:44 97.6 70 16 102/72 97 Room Air 08/14/16 04:00 97.8 76 18 148/78 96 Room Air 08/14/16 00:00 97.6 75 18 153/83 96 Room Air 08/13/16 20:55 159/86 08/13/16 20:39 76 18 Room Air 21.0 08/13/16 20:00 97.7 77 20 159/86 96 Room Air 08/13/16 16:00 97.7 79 20 151/86 99 Room Air Intake and Output 08/13/16 08/14/16 19:00 07:00 Intake Total 935 ml 1065 ml Output Total 400 ml Balance 535 ml 1065 ml Intake Oral 360 ml 515 ml IV Total 575 ml 550 ml Output Urine Total 400 ml # Voids 2 3 Laboratory Tests 08/14/16 14:05: White Blood Count 8.4, Red Blood Count 4.61, Hemoglobin 13.6, Hematocrit 41.5, Mean Corpuscular Volume 90, Mean Corpuscular Hemoglobin 29.4, Mean Corpuscular Hemoglobin Concent 32.6, Red Cell Distribution Width 12.5, Platelet Count 359, Mean Platelet Volume 6.3L, Neutrophils (%) (Auto) 63.1, Lymphocytes (%) (Auto) 24.6, Monocytes (%) (Auto) 5.5, Eosinophils (%) (Auto) 5.8H, Basophils (%) (Auto ) 1.0, Sodium Level 140, Potassium Level 4.1, Chloride Level 97L, Carbon Dioxide Level 29, Anion Gap 14, Blood Urea Nitrogen 16, Creatinine 0.8, Estimat Glomerular Filtration Rate > 60, Glucose Level 205H, Calcium Level 9.7, Magnesium Level 2.0 Height (Feet): 5 Height (Inches): 3.00 Weight (Pounds): 127 Objective General: alert, cooperative, no distress, appears stated age Head: normocephalic, without obvious abnormality, atraumatic Eyes: conjunctivae/corneas clear. PERRL, EOM's intact Throat: lips, mucosa, and tongue normal. MMM Neck: supple, symmetrical, trachea midline, and no JVD Lungs: clear to auscultation bilaterally Heart: regular rate and rhythm, S1, S2 normal, no murmur, click, rub or gallop Abdomen: soft, non-tender, non-distended, bowel sounds normal; no masses or organomegaly Extremities: extremities normal, atraumatic, no cyanosis or edema Pulses: 2+ and symmetric Skin: skin color, texture, turgor normal; no rashes or lesions Neurologic: +dysarthria, +word-finding difficulty, +R sided facial droop, 2/5 motor strength of b/l UE and LEs, sensations intact Christopher Malloy M.D. Aug 14, 2016 15:47
[2016-08-14 16:08] VITALS: BP 138/77
[2016-08-14 20:00] VITALS: BP 134/79
--- NOTE | 2016-08-14 22:44 | Pulmonology Progress Note ---
Assessment/Plan Problems: (1) Acute L MCA thromboembolic stroke, expressive aphasia. (2) HTN (hypertension) (3) Diabetes mellitus Assessment/Plan pt/ot improving dc planning swallow study noted. Subjective ROS Limited/Unobtainable: Yes Constitutional: Reports: anorexia, fatigue Neurologic: Reports: confusion, other - expressive aphasia, weakness Allergies: Coded Allergies: No Known Allergies (Unverified , 08/07/16) Objective Last 24 Hour Vital Signs Date Time Temp Pulse Resp B/P Pulse Ox O2 Delivery O2 Flow Rate FiO2 08/14/16 20:32 79 18 Room Air 21 08/14/16 20:00 98.4 82 20 134/79 97 Room Air 08/14/16 16:08 98.1 78 20 138/77 98 Room Air 08/14/16 12:39 96.8 72 16 121/70 99 Nasal Cannula 2.0 08/14/16 09:52 80 16 Room Air 21.0 08/14/16 08:44 97.6 70 16 102/72 97 Room Air 08/14/16 04:00 97.8 76 18 148/78 96 Room Air 08/14/16 00:00 97.6 75 18 153/83 96 Room Air Intake and Output 08/13/16 08/14/16 19:00 07:00 Intake Total 935 ml 1065 ml Output Total 400 ml Balance 535 ml 1065 ml Intake Oral 360 ml 515 ml IV Total 575 ml 550 ml Output Urine Total 400 ml # Voids 2 3 General Appearance: no acute distress HEENT: normocephalic, atraumatic, PERRL Respiratory/Chest: chest wall non-tender, decreased breath sounds, accessory muscle use Breasts: no masses Cardiovascular: normal peripheral pulses, normal rate, regular rhythm, no JVD Abdomen: normal bowel sounds, soft, non tender, no organomegaly, non distended Genitourinary: normal external genitalia Extremities: no cyanosis Skin: rash, lesions Neurologic/Psychiatric: responsive, abnormal CN, motor weakness, aphasia Laboratory Tests 08/14/16 14:05: White Blood Count 8.4, Red Blood Count 4.61, Hemoglobin 13.6, Hematocrit 41.5, Mean Corpuscular Volume 90, Mean Corpuscular Hemoglobin 29.4, Mean Corpuscular Hemoglobin Concent 32.6, Red Cell Distribution Width 12.5, Platelet Count 359, Mean Platelet Volume 6.3L, Neutrophils (%) (Auto) 63.1, Lymphocytes (%) (Auto) 24.6, Monocytes (%) (Auto) 5.5, Eosinophils (%) (Auto) 5.8H, Basophils (%) (Auto ) 1.0, Sodium Level 140, Potassium Level 4.1, Chloride Level 97L, Carbon Dioxide Level 29, Anion Gap 14, Blood Urea Nitrogen 16, Creatinine 0.8, Estimat Glomerular Filtration Rate > 60, Glucose Level 205H, Calcium Level 9.7, Magnesium Level 2.0 Current Medications Medications (Trade) Dose Ordered Sig/Rafiq Route PRN Reason Start Time Stop Time Status Last Admin Dose Admin Acetaminophen (Tylenol) 650 mg Q4H PRN ORAL fever 08/12/16 20:45 09/11/16 20:44 Al Hydroxide/Mg Hydroxide (Mylanta II) 30 ml Q6H PRN ORAL dyspepsia 08/12/16 20:45 09/11/16 20:44 Albuterol/ Ipratropium (DuoNeb 0.5-3(2.5)mg/3ml) 3 ml Q4H PRN HHN Shortness of Breath 08/12/16 20:45 08/17/16 20:44 Aspirin (ASA) 81 mg DAILY ORAL 08/15/16 09:00 09/14/16 08:59 Atorvastatin Calcium (Lipitor) 40 mg BEDTIME ORAL 08/12/16 21:00 09/11/16 20:59 08/14/16 21:34 Clonidine HCl (Catapres) 0.1 mg Q4H PRN ORAL SBP > 160 08/12/16 20:45 09/11/16 20:44 08/13/16 20:55 Dextrose (Dextrose 50%) STAT PRN IV Hypoglycemia 08/12/16 20:45 09/11/16 20:44 Dextrose/Sodium Chloride (D5 0.45% NS) 1,000 ml @ 50 mls/hr Q20H IV 08/12/16 17:00 09/11/16 16:59 08/14/16 12:58 Enalaprilat (Vasotec) 2.5 mg Q4H PRN IV sbp more than 200 08/12/16 20:45 09/11/16 20:44 Heparin Sodium (Porcine) (Heparin 5000 units/ml) 5,000 units EVERY 12 HOURS SUBQ 08/12/16 21:00 09/11/16 20:59 08/14/16 21:35 Insulin Aspart (NovoLOG) BEFORE MEALS AND HS SUBQ 08/12/16 21:00 09/11/16 20:59 08/14/16 21:36 Levothyroxine Sodium (Synthroid) 50 mcg DAILY@0630 ORAL 08/13/16 06:30 09/12/16 06:29 08/14/16 06:02 Lorazepam (Ativan 2mg/ml 1ml) 0.5 mg Q4H PRN IV For Anxiety 08/12/16 20:45 08/19/16 20:44 Metformin HCl (Glucophage) 500 mg BID ORAL 08/14/16 09:00 09/13/16 08:59 08/14/16 17:17 Morphine Sulfate (Morphine Sulfate) 1 mg Q4H PRN IVP For Pain 7-10 08/12/16 20:45 08/19/16 20:44 Nitroglycerin (Ntg) 0.4 mg Q5M X 3 DOSES PRN SL Prn Chest Pain 08/12/16 17:00 09/11/16 16:59 Ondansetron HCl (Zofran) 4 mg Q6H PRN IVP Nausea & Vomiting 08/12/16 20:45 09/11/16 20:44 Polyethylene Glycol (Miralax) 17 gm HSPRN PRN ORAL Constipation 08/12/16 20:45 09/11/16 20:44 Promethazine HCl/ Codeine (Phenergan with Codeine) 5 ml Q4H PRN ORAL For Cough 08/12/16 20:45 09/11/16 20:44 Temazepam (Restoril) 15 mg HSPRN PRN ORAL Insomnia 08/12/16 20:45 08/19/16 20:44 FAISAL KATE Aug 14, 2016 22:44
[2016-08-15] VITALS: BP 123/73
[2016-08-15 04:00] VITALS: BP 107/61
[2016-08-15] MEDS: NovoLOG Insulin Flexpen SUBQ SCH ×3 (05:58→17:01)
[2016-08-15 08:00] VITALS: BP 127/70
[2016-08-15] MEDS ORDERED: Aspirin Baby 81mg ORAL SCH (09:00)
[2016-08-15] MEDS: Heparin 5000 units/ml inj SUBQ SCH (09:09)
[2016-08-15] MEDS: metFORMIN 500mg tab ORAL SCH ×2 (09:11→18:14)
[2016-08-15 12:00] VITALS: BP 122/67
--- NOTE | 2016-08-15 15:09 | General Progress Note ---
Assessment/Plan Problem List: (1) Acute L MCA thromboembolic stroke, expressive aphasia. (2) meningioma, asymptomatic (3) HTN (hypertension) ICD Codes: I10 - Essential (primary) hypertension SNOMED: 54347669 (4) Hyperlipidemia ICD Codes: E78.5 - Hyperlipidemia, unspecified SNOMED: 97580435 (5) Diabetes mellitus ICD Codes: E11.9 - Type 2 diabetes mellitus without complications SNOMED: 90246249 Qualifiers: (6) Hypothyroid ICD Codes: E03.9 - Hypothyroidism, unspecified SNOMED: 34436342 Assessment/Plan Neurology consulted, appreciate rec's Pulm/critical care consulted, appreciate rec's ASA + plavix Neuro checks Cont atorvastatin 40mg qHS Appreciate endo rec's Cont synthroid 50mcg daily Repeat TSH in 6 weeks Resume MTF 500mg BID ISS PT/OT/ST Puree diet per [employer] DC planning to SNF vs ARU DVT Prophylaxis: SCD, HSQ Code Status: Full Hospital Classification Declaration: Based on this initial evaluation, and depending on the patient's clinical course, I anticipate that this patient will require hospitalization for 1-2 days for acute CVA and close respiratory/ hemodynamic monitoring. Disposition: Once the patient is stable to leave the hospital, I anticipate the patient will likely be discharged to the following environment: SNF vs ARU I spent 40 minutes on this patient's case, and 22 minutes were dedicated to counseling and/or care coordination. Discussed with patient/family, nursing staff, SW/CM, neurology, pulm/critical care regarding clinical status, treatment course, and disposition planning. Subjective Date patient seen: Aug 15, 2016 Time patient seen: 15:09 ROS Limited/Unobtainable: No Constitutional: Reports: no symptoms HEENT: Reports: no symptoms Cardiovascular: Reports: no symptoms Respiratory: Reports: no symptoms Gastrointestinal/Abdominal: Reports: no symptoms Genitourinary: Reports: no symptoms Neurologic/Psychiatric: Reports: no symptoms Endocrine: Reports: no symptoms Hematologic/Lymphatic: Reports: no symptoms Allergies: Coded Allergies: No Known Allergies (Unverified , 08/07/16) All Systems: reviewed and negative except above Subjective Awaiting rehab placement R sided weakness stable Now tolerating puree diet Pt w/ expressive aphasia, improving D/w sister at bedside. Pt will need SNF vs ARU on d/c. Objective Last 24 Hour Vital Signs Date Time Temp Pulse Resp B/P Pulse Ox O2 Delivery O2 Flow Rate FiO2 08/15/16 12:00 97.7 86 18 122/67 99 Room Air 08/15/16 08:00 98.4 72 18 127/70 98 Room Air 08/15/16 04:00 97.0 72 18 107/61 99 Room Air 08/15/16 00:00 97.5 78 20 123/73 100 Room Air 08/14/16 20:32 79 18 Room Air 21 08/14/16 20:00 98.4 82 20 134/79 97 Room Air 08/14/16 16:08 98.1 78 20 138/77 98 Room Air Intake and Output 08/14/16 08/15/16 19:00 07:00 Intake Total 640 ml 490 ml Output Total 200 ml Balance 440 ml 490 ml Intake Oral 240 ml 240 ml IV Total 400 ml 250 ml Output Urine Total 200 ml # Voids 1 2 Height (Feet): 5 Height (Inches): 3.00 Weight (Pounds): 127 Objective General: alert, cooperative, no distress, appears stated age Head: normocephalic, without obvious abnormality, atraumatic Eyes: conjunctivae/corneas clear. PERRL, EOM's intact Throat: lips, mucosa, and tongue normal. MMM Neck: supple, symmetrical, trachea midline, and no JVD Lungs: clear to auscultation bilaterally Heart: regular rate and rhythm, S1, S2 normal, no murmur, click, rub or gallop Abdomen: soft, non-tender, non-distended, bowel sounds normal; no masses or organomegaly Extremities: extremities normal, atraumatic, no cyanosis or edema Pulses: 2+ and symmetric Skin: skin color, texture, turgor normal; no rashes or lesions Neurologic: +dysarthria, +word-finding difficulty, +R sided facial droop, 2/5 motor strength of b/l UE and LEs, sensations intact Christopher Malloy M.D. Aug 15, 2016 15:09
[2016-08-15 16:00] VITALS: BP 137/85
[2016-08-15 20:00] VITALS: BP 158/89
--- NOTE | 2016-08-15 23:50 | Pulmonology Progress Note ---
Assessment/Plan Problems: (1) Acute L MCA thromboembolic stroke, expressive aphasia. (2) HTN (hypertension) (3) Diabetes mellitus Assessment/Plan pt/ot improving dc planning swallow study noted. Subjective ROS Limited/Unobtainable: Yes Constitutional: Reports: anorexia, fatigue Neurologic: Reports: confusion, weakness Musculoskeletal: Reports: pain, stiffness, swelling Allergies: Coded Allergies: No Known Allergies (Unverified , 08/07/16) Objective Last 24 Hour Vital Signs Date Time Temp Pulse Resp B/P Pulse Ox O2 Delivery O2 Flow Rate FiO2 08/15/16 20:00 97.9 83 18 158/89 99 Room Air 08/15/16 16:00 98.1 84 20 137/85 98 Room Air 08/15/16 12:00 97.7 86 18 122/67 99 Room Air 08/15/16 08:00 98.4 72 18 127/70 98 Room Air 08/15/16 04:00 97.0 72 18 107/61 99 Room Air 08/15/16 00:00 97.5 78 20 123/73 100 Room Air Intake and Output 08/14/16 08/15/16 19:00 07:00 Intake Total 640 ml 490 ml Output Total 200 ml Balance 440 ml 490 ml Intake Oral 240 ml 240 ml IV Total 400 ml 250 ml Output Urine Total 200 ml # Voids 1 2 General Appearance: no acute distress HEENT: normocephalic, atraumatic, PERRL Respiratory/Chest: chest wall non-tender, decreased breath sounds, accessory muscle use Breasts: no masses Cardiovascular: normal peripheral pulses, normal rate, regular rhythm, no JVD Abdomen: normal bowel sounds, soft, non tender, no organomegaly Genitourinary: normal external genitalia Extremities: no cyanosis Skin: no rash Neurologic/Psychiatric: responsive, abnormal CN, motor weakness, disoriented, aphasia FAISAL KATE Aug 15, 2016 23:50
--- NOTE | 2016-08-16 08:18 | Discharge Summary ---
Discharge Summary Hospital Course Date of Admission Aug 07, 2016 at 13:17 Date of Discharge Aug 15, 2016 at 20:30 Admitting Diagnosis CVA HPI 66yo female with pmh of DM2 and HTN who presents with slurred speech and RUE weakness/numbness. Patient states that around 4 AM she woke up and noticed that she had slurred speech. She states that she also had weakness and numbness in her right arm. She states that the weakness has improved. She still has a tingling/numbness sensation in her right arm. She continues to have slurred speech but states that it is improved. She denies recent illness. She denies headache. She denies recent trauma. She denies neck pain. She denies chest pain or shortness of breath. She has no other complaints. In ED, pt had CT brain which was neg. MRI brain showed multifocal acute lacunar infarcts in the left pineda radiata, basal ganglia, and left temporoparietal junction. Embolic etiology suspected. Consultations Neurology Pulmonary/critical care Hospital Course Pt was admitted to [facility]. She was initially started on ASA and plavix. Pt's weakness improved; however on 08/09 pt noted to have worsening weakness, and so repeat CT head was done which showed evolving stroke. Pt was also found to be hypothroid and initated on synthroid per endocrinology. Pt was seen by PT/OT with recommendation for SNF. Per [employer] ana, recommendation was for puree diet for now. Prior to d/c, pt was HD stable and tolerating PO. Discharge Medications New Medications: Aspirin* (Aspirin*) 81 Mg Tab.chew 81 MG ORAL DAILY for 30 Days, TAB Atorvastatin Calcium* (Atorvastatin Calcium*) 40 Mg Tablet 40 MG ORAL BEDTIME for 30 Days, TAB Clonidine HCl (Clonidine HCl) 0.1 Mg Tablet 0.1 MG ORAL Q4H PRN for 30 Days, TAB SBP>150 Levothyroxine Sodium (Synthroid) 50 Mcg Tablet 50 MCG ORAL DAILY@0630 for 30 Days, TAB Take in the morning on an empty stomach, at least 30 minutes beforefood. 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 (2) Hypothyroidism (3) HTN (hypertension) (4) Hyperlipidemia (5) Diabetes mellitus Discharge Instructions Discharge Instructions Follow up with: F/u with primary care doctor Call MD/Return to Hospital if: worsening weakness/numbness, fevers, chest pain , SOB Additional Diet Information: Puree diet Activity: resume normal activities Christopher Malloy M.D. Aug 16, 2016 08:18
--- NOTE | 2016-08-16 18:18 | Discharge Summary ---
Discharge Summary Hospital Course Date of Admission Aug 07, 2016 at 13:17 Date of Discharge Aug 15, 2016 at 20:30 Admitting Diagnosis CVA HPI Claudia Nolan is a 66 year old female who was admitted on Aug 07, 2016 at 13: 17 for Cerebrovascular Accident Hospital Course [id number] Discharge Discharge Disposition Patient was discharged to SNF/Subacute Facility(03) Discharge Diagnoses: Discharge Instructions Discharge Instructions Follow up with: F/u with primary care doctor Call MD/Return to Hospital if: worsening weakness/numbness, fevers, chest pain , SOB Additional Diet Information: Puree diet Activity: resume normal activities Nidhi Monterroso NP Aug 16, 2016 18:18
--- NOTE | 2016-08-17 05:58 | Discharge Summary 2 SIG ---
DATE OF ADMISSION: 08/07/2016 DATE OF DISCHARGE: 08/15/2016 CONSULTANTS: 1. Denzel Hyatt M.D. 2. Chu Garner M.D. 3. Seth Bowers M.D. BRIEF HOSPITAL COURSE: The patient is a 66-year-old female with history of diabetes mellitus, type 2 and hypertension presented to ED with slurred speech and right upper extremity weakness and numbness, started at 4 in the morning when she woke up and noticed that she had a slurred speech. She was complaining of tingling and numbness sensation in the right arm and continued to have slurred speech, although it has improved. On evaluation at ED, CT of the brain was negative. MRI showed multifocal acute lacunar infarct in the left pineda radiata, basal ganglia, and left temporal parietal junction. Embolic etiology was suspected. She was admitted to telemetry and was given aspirin, Plavix, and atorvastatin 40 mg nightly. She was seen by Dr. Bowers and also had findings of severe left MCA distribution stenosis and 6 millimeter meningioma, most likely asymptomatic. She was given physical and occupational therapy. Dr. Garner was consulted for evaluation of blood sugar and hypothyroidism and was started on levothyroxine 50 mcg and Metformin. She was started on NGT feedings, pending video swallow evaluation. She passed swallow evaluation and was able to tolerate pureed diet. . She was eventually discharged to home. She needs to continue rehabilitation. FINAL DIAGNOSES: 1. Acute left MCA thromboembolic stroke with expressive aphasia. 2. Meningioma. 3. Hypertension. 4. Hyperlipidemia. 5. Diabetes mellitus. 6. Hypothyroidism. Christopher Malloy M.D. I have been assigned to dictate discharge summary on this account and I was not involved in the patient's management. Nidhi Monterroso N.P. DR: AFR[place] JOB#: [id number] CC: [id number]
--- NOTE | 2016-09-02 16:11 | Diagnostic Imaging Report ---
Indications: Dysphagia Technique: Multiphasic barium dysphagia study was performed under fluoroscopic control with Lauren Bobo speech pathologist. Cinegraphic images were obtained. Total fluoroscopy time: 249.5 sec Dose-area product: 0.54 mGy-m2 Findings: Comparison: None Oral and pharyngeal phases of swallowing demonstrate multiple mechanical abnormalities, as enumerated on speech pathology evaluation form. The patient demonstrates tracheal aspiration of thin liquid barium not eliciting cough reflex, deep laryngeal penetration of thin and nectar thickness barium ejected, superficial laryngeal penetration of thin, nectar, and honey thickness barium injected, no penetration or aspiration of solid-phase barium. There is moderate barium coating of pharyngeal structures post swallow.. Esophageal phase of swallowing demonstrates barium pooling with retrograde propagation below the pharyngeal esophageal segment. IMPRESSION: Abnormal oropharyngeal mechanics with tracheal aspiration of thin liquid barium without cough reflex, laryngeal penetration of multiple consistencies of barium with variable clearance. Moderate post swallow pharyngeal residue Esophageal dysmotility with reversed peristalsis as described. Recommendation per speech pathology evaluation form.
== END 2016-08-15 20:30 | DRG 66 ==
LOC: EDBD 10:50 → EMR 12:37 → 2W 13:17 → EDBEDREQ 15:48 → 2W 08-08 01:43 → 4W 08-12 16:45
DX: I63.412 Cerebral infarction due to embolism of left middle cerebral artery (principal); R47.01 Aphasia; I10 Essential (primary) hypertension; D32.9 Benign neoplasm of meninges, unspecified; E78.5 Hyperlipidemia, unspecified; E11.9 Type 2 diabetes mellitus without complications; E03.9 Hypothyroidism, unspecified; R13.10 Dysphagia, unspecified
CPT/HCPCS: 36415; 70450; 70553; 71010; 74000; 74230; 80048; 80053; 80061; 81003; 82607; 82746; 82962; 83036; 83735; 84439; 84443; 84484; 85025; 85610; 85730; 93005; 93306; 93880; 93970; 94664; A9585; J1815